=== PATIENT | female | born 1970 | race Caucasian/White ===

== ENCOUNTER → 2016-12-02 | Outpatient (CLI) | payer OTHER ==
[~2016-12-02] MED LIST: INCRUSE ELLIPTA INH; LORA10TA2 PO; PERC5TAB6 PO; REST15CA PO; SERT-138 PO; SIMV40TA2 PO; dulera INH; ventolin inhaler INH
--- NOTE | 2016-12-02 14:29 | REP ---
Clinical: COPD acute exacerbation . Comparison: 11/27/2015 . Technique: PA and lateral. Findings: The mediastinum and cardiac silhouette are stable. The lung pollock demonstrate chronic stable changes without acute consolidation, effusion, or pneumothorax. The skeletal structures are intact and normal. Impression: No acute cardiopulmonary process. If the patient remains symptomatic consider chest CT for further investigation.
== END ==
LOC: M CLY 14:00
PROVIDERS: ATTEND Physician Assistant
DX: J44.1 Chronic obstructive pulmonary disease with (acute) exacerbation (principal)

== ENCOUNTER → 2016-12-06 | Outpatient (REF) | payer OTHER ==
[2016-12-06 17:55] LABS: ALBUMIN/GLOBULIN RATIO 1.25 (1.00-1.93); ALKALINE PHOSPHATASE 100 U/L (45-117); ALT/SGPT 28 U/L (12-78); AMYLASE 57 U/L (25-115); ANION GAP 8 MEQ/L (8-16); AST/SGOT 20 U/L (15-37); BILIRUBIN,TOTAL 0.2 MG/DL (0.2-1.0); BLOOD UREA NITROGEN 18 MG/DL (7-18); CARBON DIOXIDE LEVEL 26 MEQ/L (21-32); CHLORIDE LEVEL 107 MEQ/L (98-107); CHOLESTEROL LEVEL 206 MG/DL (<200); CREATININE FOR GFR 0.93 MG/DL (0.55-1.02); FREE T4 0.94 NG/DL (0.76-1.46); GLOMERULAR FILTRATION RATE > 60.0 (>58); GLUCOSE, FASTING 108 MG/DL (70-105); POTASSIUM SERUM 4.3 MEQ/L (3.5-5.1); SODIUM LEVEL 141 MEQ/L (136-145); TOTAL PROTEIN 7.2 GM/DL (6.4-8.2); TRIGLYCERIDES LEVEL 190 MG/DL (<150)
[2016-12-06 18:42] LABS: BASO # 0.1 K/mm3 (0.0-0.2); BASO % 0.9 % (0.0-1.0); EOS # 0.4 K/mm3 (0.0-0.50); EOS % 5.6 % (0.0-3.0); LARGE UNSTAINED CELL # 0.1 K/mm3 (0.0-0.4); LARGE UNSTAINED CELL % 1.2 % (0.0-4.0); LYMPH # 2.4 K/mm3 (1.5-4.5); LYMPH % 29.2 % (24.0-44.0); MEAN CORPUSCULAR HEMOGLOBIN 29.9 pg (27.0-33.0); MEAN CORPUSCULAR HGB CONC 33.3 g/dl (32.0-36.5); MEAN CORPUSCULAR VOLUME 89.8 fl (80.0-96.0); MONO # 0.4 K/mm3 (0.0-0.8); MONO % 4.4 % (0.0-5.0); NEUTROPHILS # 4.6 K/mm3 (1.8-7.7); NEUTROPHILS % 58.7 % (36.0-66.0); PLATELET COUNT, AUTOMATED 169 k/mm3 (150-450); RED CELL DISTRIBUTION WIDTH 13.8 % (11.5-14.5); WHITE BLOOD COUNT 7.8 K/mm3 (4.0-10.0)
== END ==
LOC: M SFHCCAPE 07:34
PROVIDERS: ATTEND Physician Assistant
DX: R10.11 Right upper quadrant pain (principal)

== ENCOUNTER → 2016-12-20 | Outpatient (CLI) | payer OTHER ==
--- NOTE | 2016-12-20 11:24 | REP ---
THORACIC SPINE, THREE VIEWS: HISTORY: Thoracic pain. There is no acute fracture or subluxation. The intervertebral discs are normal in height. Osteophytes are present in the lower thoracic spine. IMPRESSION: Degenerative change as described above.
--- NOTE | 2016-12-20 11:26 | REP ---
LUMBAR SPINE, FIVE VIEWS: HISTORY: Back pain. There is no acute fracture or subluxation. The L3-4 through L5-S1 intervertebral discs are decreased in height consistent with disc degeneration. The facet joints are normal in appearance. IMPRESSION: Degenerative change as described above.
== END ==
LOC: M CLY 09:23
PROVIDERS: ATTEND Physician Assistant
DX: M54.6 Pain in thoracic spine (principal)

== ENCOUNTER → 2017-01-12 | Outpatient (REF) | payer OTHER ==
[2017-01-12 18:48] LABS: FREE T4 0.97 NG/DL (0.76-1.46)
== END ==
LOC: M SFHCCAPE 09:57
PROVIDERS: ATTEND Physician Assistant
DX: R94.6 Abnormal results of thyroid function studies (principal)

== ENCOUNTER 2017-03-22 16:42 | Emergency (ER) | payer OTHER ==
[~2017-03-22] VITALS: Ht 152.4 cm; Wt 70.4 kg
[~2017-03-22 16:42] MED LIST changes: +PERC5TAB12 PO; -PERC5TAB6 PO
[2017-03-22] MEDS ORDERED: MORPHINE 4 MG/ML 1ML SYRINGE IV PRN (17:45)
[2017-03-22] MEDS ORDERED: ONDANSETRON 4MG/2ML VIAL (J2405) IV ONE (17:45)
[2017-03-22] MEDS ORDERED: NS 1,000 ML IV ONE (17:45)
[2017-03-22 18:48] LABS: BASO % 0.7 % (0.0-1.0); EOS # 0.3 K/mm3 (0.0-0.50); EOS % 4.3 % (0.0-3.0); LARGE UNSTAINED CELL # 0.1 K/mm3 (0.0-0.4); LARGE UNSTAINED CELL % 1.3 % (0.0-4.0); LYMPH # 1.3 K/mm3 (1.5-4.5); LYMPH % 19.4 % (24.0-44.0); MEAN CORPUSCULAR HEMOGLOBIN 30.3 pg (27.0-33.0); MEAN CORPUSCULAR HGB CONC 34.9 g/dl (32.0-36.5); MEAN CORPUSCULAR VOLUME 86.8 fl (80.0-96.0); MONO # 0.3 K/mm3 (0.0-0.8); MONO % 5.5 % (0.0-5.0); NEUTROPHILS # 4.2 K/mm3 (1.8-7.7); NEUTROPHILS % 68.9 % (36.0-66.0); PLATELET COUNT, AUTOMATED 155 k/mm3 (150-450); RED CELL DISTRIBUTION WIDTH 14.1 % (11.5-14.5); WHITE BLOOD COUNT 6.2 K/mm3 (4.0-10.0)
[2017-03-22 19:06] LABS: ALBUMIN 3.8 GM/DL (3.2-5.2); ALBUMIN/GLOBULIN RATIO 1.03 (1.00-1.93); ALKALINE PHOSPHATASE 98 U/L (45-117); ALT/SGPT 34 U/L (12-78); ANION GAP 8 MEQ/L (8-16); AST/SGOT 26 U/L (15-37); BILIRUBIN,DIRECT 0.1 MG/DL (0.0-0.2); BILIRUBIN,TOTAL 0.4 MG/DL (0.2-1.0); BLOOD UREA NITROGEN 14 MG/DL (7-18); CALCIUM LEVEL 9.1 MG/DL (8.5-10.1); CARBON DIOXIDE LEVEL 25 MEQ/L (21-32); CHLORIDE LEVEL 106 MEQ/L (98-107); GLOMERULAR FILTRATION RATE > 60.0 (>58); GLUCOSE, FASTING 99 MG/DL (70-105); POTASSIUM SERUM 4.1 MEQ/L (3.5-5.1); SODIUM LEVEL 139 MEQ/L (136-145); TOTAL PROTEIN 7.5 GM/DL (6.4-8.2)
[2017-03-22] MEDS ORDERED: MACR100C43 PO (19:55)
[2017-03-22] MEDS ORDERED: PYRI1TAB5 PO (19:57)
[2017-03-22] MEDS ORDERED: NITROFURANTOIN (MACROBID) 100 MG CAP PO ONE (20:00)
[2017-03-22 20:13] VITALS: BP 105/65
--- NOTE | 2017-03-23 10:21 | REPUSA ---
CLINICAL HISTORY: Pain. TECHNIQUE: Realtime sonographic images were obtained in multiple projections. COMMENTS: The liver is demonstrates increased echogenicity compatible with fatty infiltration. No discrete hepatic mass is seen. There is no intra or extrahepatic biliary ductal dilatation. CBD measures 3 mm. The gallbladder is physiologically distended without evidence of calculi. The gallbladder wall is not thickened and ther e is no pericholecystic fluid. There is no abdominal ascites. The right kidney measures 9.7 cm, free of hydronephrosis, calculi, cysts or masses. IMPRESSION: Fatty liver. No acute pathology. Thank you for your kind referral of this patient.
== END 2017-03-22 20:26 | disposition home or self-care (01) ==
LOC: M ED 16:42
DX: N39.0 Urinary tract infection, site not specified (principal); J45.909 Unspecified asthma, uncomplicated; J44.9 Chronic obstructive pulmonary disease, unspecified; F41.9 Anxiety disorder, unspecified; F32.9 Major depressive disorder, single episode, unspecified; F17.200 Nicotine dependence, unspecified, uncomplicated; K76.0 Fatty (change of) liver, not elsewhere classified; Z79.899 Other long term (current) drug therapy
CPT/HCPCS: 76705; 80048; 80076; 81001; 83690; 85025; 96374; 96375; 99283; J2405

== ENCOUNTER → 2017-05-17 | Outpatient (REF) | payer OTHER ==
[~2017-05-17] MED LIST changes: +MACR100C43 PO; +PYRI1TAB5 PO
[2017-05-17 19:30] LABS: FOLATE 14.8 NG/ML; VITAMIN B12 LEVEL 339 PG/ML
[2017-05-17 19:40] LABS: ALBUMIN 3.8 GM/DL (3.2-5.2); ALBUMIN/GLOBULIN RATIO 1.12 (1.00-1.93); ALKALINE PHOSPHATASE 116 U/L (45-117); ALT/SGPT 36 U/L (12-78); ANION GAP 8 MEQ/L (8-16); AST/SGOT 14 U/L (15-37); BILIRUBIN,TOTAL 0.2 MG/DL (0.2-1.0); BLOOD UREA NITROGEN 19 MG/DL (7-18); CALCIUM LEVEL 9.1 MG/DL (8.5-10.1); CARBON DIOXIDE LEVEL 27 MEQ/L (21-32); CHLORIDE LEVEL 109 MEQ/L (98-107); CREATININE FOR GFR 0.84 MG/DL (0.55-1.02); FREE T4 0.92 NG/DL (0.76-1.46); GLOMERULAR FILTRATION RATE > 60.0 (>58); GLUCOSE, FASTING 74 MG/DL (70-105); POTASSIUM SERUM 4.1 MEQ/L (3.5-5.1); SODIUM LEVEL 144 MEQ/L (136-145); TOTAL PROTEIN 7.2 GM/DL (6.4-8.2)
[2017-05-17 20:14] LABS: BASO % 0.5 % (0.0-1.0); EOS # 0.4 K/mm3 (0.0-0.50); EOS % 4.4 % (0.0-3.0); LARGE UNSTAINED CELL # 0.1 K/mm3 (0.0-0.4); LARGE UNSTAINED CELL % 1.4 % (0.0-4.0); LYMPH # 1.8 K/mm3 (1.5-4.5); LYMPH % 20.8 % (24.0-44.0); MEAN CORPUSCULAR HEMOGLOBIN 30.5 pg (27.0-33.0); MEAN CORPUSCULAR HGB CONC 34.5 g/dl (32.0-36.5); MEAN CORPUSCULAR VOLUME 88.5 fl (80.0-96.0); MONO # 0.5 K/mm3 (0.0-0.8); MONO % 5.6 % (0.0-5.0); NEUTROPHILS # 5.7 K/mm3 (1.8-7.7); NEUTROPHILS % 67.4 % (36.0-66.0); PLATELET COUNT, AUTOMATED 186 k/mm3 (150-450); RED CELL DISTRIBUTION WIDTH 14.3 % (11.5-14.5); WHITE BLOOD COUNT 8.4 K/mm3 (4.0-10.0)
[2017-05-17 21:22] LABS: ERYTHROCYTE SEDIMENTATION RATE 40 mm/hr (0-20)
[2017-05-20 00:08] LABS: Lyme Disease IgG/IgM Antibodie <0.91 ISR (0.00-0.90); Lyme Disease IgM Ab Quantitati <0.80 index (0.00-0.79)
== END ==
LOC: M SFHCCAPE 10:46
PROVIDERS: ATTEND Physician Assistant
DX: M25.50 Pain in unspecified joint (principal); R94.6 Abnormal results of thyroid function studies

== ENCOUNTER → 2017-05-25 | Outpatient (CLI) | payer OTHER ==
--- NOTE | 2017-05-25 16:09 | REP ---
MRI lumbar spine without contrast: History: Lumbago with right-sided sciatica. Severe low back pain. Comparison radiographs December 20, 2016. Technique: Sagittal and axial T1 and T2-weighted scans are acquired in the usual fashion with and without fat saturation. Sequences include spin echo, turbo spin-echo, and STIR imaging sequences. MRI findings: Cortical and medullary bone signal intensity are normal. Vertebral body heights are preserved. Alignment is normal. Pedicles and posterior elements are intact. There is no evidence of spondylolysis or spondylolisthesis. Conus medullaris is normal in position and appearance at L1. No extra vertebral abnormality is observed. Disc spaces are maintained in height and signal intensity. No lumbar disc herniation is seen. No central canal stenosis or neural foraminal narrowing is seen. There is minimal facet hypertrophy at L4-5 and L5-S1. Impression: Minimal facet hypertrophy at L5-S1 and at L4-5. Otherwise negative MRI study lumbar spine. Signed by Mingo Hill MD 05/25/2017 06:02 P
== END ==
LOC: M RAD 11:10
PROVIDERS: ATTEND Physician Assistant
DX: M54.5 Low back pain (principal)

== ENCOUNTER → 2017-07-18 | Outpatient (REF) | payer OTHER | LOC: M SFHCCAPE 17:43 | PROVIDERS: ATTEND Physician Assistant | DX: R30.0 Dysuria (principal) ==

== ENCOUNTER 2017-08-12 10:59 | Emergency (ER) | payer OTHER ==
[~2017-08-12] VITALS: Ht 149.9 cm; Wt 74.9 kg
[2017-08-12] MEDS ORDERED: MORPHINE 2 MG/ML 1ML SYRINGE IV ONE (12:15)
[2017-08-12] MEDS ORDERED: KETOROLAC 30 MG/ML VIAL (J1885) IM ONE (12:15)
[2017-08-12] MEDS ORDERED: ACETAMINOPH W/CODEINE #3 TAB UD PO ONE (12:15)
[2017-08-12] MEDS ORDERED: KETOROLAC 30 MG/ML VIAL (J1885) IV ONE (12:15)
[2017-08-12 12:23] LABS: BASO % 0.4 % (0.0-1.0); EOS # 0.1 10^3/uL (0.0-0.50); EOS % 0.8 % (0.0-3.0); IMMATURE GRANULOCYTE % 0.3 % (0-0); LYMPH # 0.9 10^3/uL (1.5-4.5); LYMPH % 8.3 % (24.0-44.0); MEAN CORPUSCULAR HEMOGLOBIN 29.5 pg (27.0-33.0); MEAN CORPUSCULAR HGB CONC 33.1 g/dl (32.0-36.5); MONO # 0.7 10^3/uL (0.0-0.8); MONO % 6.6 % (0.0-5.0); NEUTROPHILS # 8.7 10^3/uL (1.8-7.7); NEUTROPHILS % 83.6 % (36.0-66.0); PLATELET COUNT, AUTOMATED 170 10^3/uL (150-450); RED CELL DISTRIBUTION WIDTH 13.6 % (11.5-14.5); WHITE BLOOD COUNT 10.4 10^3/uL (4.0-10.0)
[2017-08-12 12:38] LABS: ALBUMIN/GLOBULIN RATIO 0.8 (1.00-1.93); BILIRUBIN,TOTAL 0.5 MG/DL (0.2-1.0); CALCIUM LEVEL 9.4 MG/DL (8.5-10.1); CREATININE FOR GFR 1.24 MG/DL (0.55-1.02); GLOMERULAR FILTRATION RATE 48.9 (>58); POTASSIUM SERUM 3.7 MEQ/L (3.5-5.1)
[2017-08-12] MEDS ORDERED: ISOVUE-370 76% 100ML VIAL (Q9967) As Ordered ONE (12:47)
[2017-08-12] MEDS ORDERED: ONDANSETRON 4 MG ORAL DISINTEGRATING TAB (S0181) PO ONE (13:45)
[2017-08-12] MEDS ORDERED: TAMSULOSIN 0.4 MG CAP PO ONE (13:45)
[2017-08-12] MEDS ORDERED: BACTRIM 160MG/800MG DS TAB PO ONE (13:45)
[2017-08-12] MEDS ORDERED: NS 1,000 ML IV ONE (13:45)
[2017-08-12] MEDS ORDERED: FLOM5CAP PO ×2 (15:28→15:37)
[2017-08-12] MEDS ORDERED: BACT800T5 PO (15:28)
[2017-08-12 15:42] VITALS: BP 113/58
--- NOTE | 2017-08-13 06:43 | REP ---
REASON FOR EXAM: Flank pain. CONTRAST: 100 mL Isovue 370. Lung bases are clear. The liver, gallbladder, spleen, pancreas, adrenal glands, and right kidney are unremarkable. There is mild left sided hydronephrosis secondary to a round 9 mm size calcification in the ureteropelvic junction. The bowel loops and their mesenteries are within normal limits. There is no free fluid or free air. The abdominal aorta and para-aortic regions are within normal limits. There is no intra-abdominal mass or adenopathy. CT PELVIS: There is no mass or adenopathy. There is no free fluid or free air. The bowel loops and mesenteries are within normal limits. Bone window technique throughout the examination shows the osseous structures to be within normal limits. IMPRESSION: Proximal left ureterolith with resultant findings as described above. Signed by Be Saha DO 08/13/2017 08:55 A
== END 2017-08-12 15:43 | disposition home or self-care (01) ==
LOC: M ED 10:59
DX: N20.0 Calculus of kidney (principal); N39.0 Urinary tract infection, site not specified; R51 Headache; E78.00 Pure hypercholesterolemia, unspecified; J45.909 Unspecified asthma, uncomplicated; G47.30 Sleep apnea, unspecified; F41.9 Anxiety disorder, unspecified; F32.9 Major depressive disorder, single episode, unspecified; F17.200 Nicotine dependence, unspecified, uncomplicated; Z79.899 Other long term (current) drug therapy
CPT/HCPCS: 74177; 80053; 81001; 85025; 96361; 96372; 96374; 96375; 99284; J1885; Q9967

== ENCOUNTER → 2017-09-07 | Outpatient (REF) | payer OTHER | LOC: M SFHCCAPE 16:48 | DX: N39.0 Urinary tract infection, site not specified (principal) ==

== ENCOUNTER → 2017-09-14 | Outpatient (REF) | payer OTHER ==
[2017-09-14 17:14] LABS: HEMATOCRIT 40.2 % (36.0-47.0); HEMOGLOBIN 13.3 g/dl (12.0-16.0); MEAN CORPUSCULAR HEMOGLOBIN 29.3 pg (27.0-33.0); MEAN CORPUSCULAR HGB CONC 33.1 g/dl (32.0-36.5); MEAN CORPUSCULAR VOLUME 88.5 fl (80.0-96.0); PLATELET COUNT, AUTOMATED 196 10^3/uL (150-450); RED BLOOD COUNT 4.54 10^6/uL (4.00-5.40); RED CELL DISTRIBUTION WIDTH 14.2 % (11.5-14.5); WHITE BLOOD COUNT 7.9 10^3/uL (4.0-10.0)
[2017-09-14 17:25] LABS: INR 0.98; PROTHROMBIN TIME 13.1 SECONDS (12.4-14.5)
[2017-09-14 17:26] LABS: PARTIAL THROMBOPLASTIN TIME 30.7 SECONDS (26.8-37.9)
[2017-09-14 18:58] LABS: ANION GAP 9 MEQ/L (8-16); BLOOD UREA NITROGEN 17 MG/DL (7-18); CALCIUM LEVEL 9.1 MG/DL (8.5-10.1); CARBON DIOXIDE LEVEL 28 MEQ/L (21-32); CHLORIDE LEVEL 103 MEQ/L (98-107); CREATININE FOR GFR 0.88 MG/DL (0.55-1.02); GLOMERULAR FILTRATION RATE > 60.0 (>58); GLUCOSE, FASTING 225 MG/DL (70-105); SODIUM LEVEL 140 MEQ/L (136-145)
== END ==
LOC: M LABSMT 13:28
DX: N20.0 Calculus of kidney (principal); Z01.818 Encounter for other preprocedural examination; N39.0 Urinary tract infection, site not specified

== ENCOUNTER → 2017-10-04 | Outpatient (REF) | payer OTHER ==
[2017-10-04 18:01] LABS: APPEARANCE, URINE HAZY (CLEAR); BACTERIA, URINE AUTO 1+ (NEGATIVE); BILIRUBIN, URINE AUTO NEGATIVE (NEGATIVE); BLOOD, URINE BLOOD 3+ (NEGATIVE); COLOR, URINE YELLOW (YELLOW); GLUCOSE, URINE (UA) AUTO NEGATIVE (NEGATIVE); KETONE, URINE AUTO NEGATIVE (NEGATIVE); LEUKOCYTE ESTERASE, URINE AUTO 3+ (NEGATIVE); MUCUS, URINE SMALL (NEGATIVE); NITRITE, URINE AUTO NEGATIVE (NEGATIVE); PROTEIN, URINE AUTO 1+ mg/dL (NEGATIVE); RBC, URINE AUTO 16 /HPF (0-3); SPECIFIC GRAVITY URINE AUTO 1.018 (1.002-1.035); SQUAMOUS EPITHELIAL CELL UR AU 1 /HPF (0-6); UROBILINOGEN, URINE AUTO 0.2 mg/dL (0.0-2.0); WBC, URINE AUTO 36 /HPF (0-3)
== END ==
LOC: M LABSMT 07:21
DX: Z01.812 Encounter for preprocedural laboratory examination (principal); N13.2 Hydronephrosis with renal and ureteral calculous obstruction
CPT/HCPCS: 81001

== ENCOUNTER → 2017-10-04 | Outpatient (REF) | payer OTHER ==
[2017-10-06 14:13] LABS: C-PEPTIDE 4.2 ng/mL (1.1-4.4)
[2017-10-06 14:13] LABS: INSULIN LEVEL 14.5 uIU/mL (2.6-24.9)
== END ==
LOC: M LABSMT 16:44
DX: Z01.812 Encounter for preprocedural laboratory examination (principal); E66.9 Obesity, unspecified; N13.2 Hydronephrosis with renal and ureteral calculous obstruction
CPT/HCPCS: 83525

== ENCOUNTER 2017-10-09 08:47 | Day surgery (SDC) | payer OTHER ==
[2017-10-09] MEDS ORDERED: LIDOCAINE 1% MDV 20ML VIAL SQ (09:00)
[2017-10-09] MEDS: LR 1,000 ML IV (09:05)
[2017-10-09] MEDS ORDERED: fentaNYL 100 MCG/2 ML INJECTION (J3010) As Ordered (09:23)
[2017-10-09] MEDS ORDERED: MIDAZOLAM INJ 2 MG/2 ML VIAL (J2250) As Ordered (09:23)
[2017-10-09] MEDS ORDERED: LIDOCAINE PRES-FREE 2% 10ML AMP As Ordered (09:23)
[2017-10-09] MEDS ORDERED: PROPOFOL 200 MG/20 ML VIAL As Ordered (09:23)
[2017-10-09] MEDS: CONRAY-60 60% 50ML VIAL (Q9961) As Ordered (09:59)
[2017-10-09] MEDS ORDERED: dexameTHASONE 4 MG/ML 1ML VIAL (J1100) As Ordered (10:13)
[2017-10-09] MEDS ORDERED: PERCOCET 5MG/325MG TAB PO (11:30)
[2017-10-09] MEDS ORDERED: LEVALBUTEROL 1.25 MG/0.5 ML CONCENTRATE NEB INH (11:30)
[2017-10-09] MEDS: oxyBUTYnin 5 MG TAB PO (11:50)
[2017-10-09] MEDS: PERCOCET 5MG/325MG TAB PO ×2 (11:50→12:35)
[2017-10-09] MEDS: METOCLOPRAMIDE INJ 10MG/2ML VIAL (J2765) IV (13:20)
== END 2017-10-09 14:00 | disposition home or self-care (01) ==
LOC: M SDC 08:47
DX: N20.1 Calculus of ureter (principal); J45.909 Unspecified asthma, uncomplicated; J44.9 Chronic obstructive pulmonary disease, unspecified; E78.00 Pure hypercholesterolemia, unspecified; F41.9 Anxiety disorder, unspecified; M12.9 Arthropathy, unspecified; M54.5 Low back pain; G89.29 Other chronic pain; G47.33 Obstructive sleep apnea (adult) (pediatric); R06.83 Snoring; Z79.899 Other long term (current) drug therapy; Z87.440 Personal history of urinary (tract) infections; Z98.51 Tubal ligation status; Z90.710 Acquired absence of both cervix and uterus; Z72.0 Tobacco use
CPT/HCPCS: 52356

== ENCOUNTER → 2018-05-31 | Outpatient (CLI) | payer OTHER | LOC: M SMT 11:00 | DX: J44.9 Chronic obstructive pulmonary disease, unspecified (principal) | CPT/HCPCS: 71046 ==

== ENCOUNTER → 2018-11-02 | Outpatient (REF) | payer OTHER ==
[~2018-11-02] MED LIST changes: +BACT800T5 PO; +BREO1INH3 INH; +FLOM0.4C39 PO; +IPRA0.00 IN; +LORA-243 PO; -LORA10TA2 PO; +NICO21DI34 TD; +SUMA50TA2 PO; +VITA50005 PO; +ZOLO100T PO
[2018-11-02 16:34] LABS: APPEARANCE, URINE CLEAR (CLEAR); BACTERIA, URINE AUTO NEGATIVE (NEGATIVE); BILIRUBIN, URINE AUTO NEGATIVE (NEGATIVE); BLOOD, URINE BLOOD NEGATIVE (NEGATIVE); COLOR, URINE YELLOW (YELLOW); GLUCOSE, URINE (UA) AUTO NEGATIVE (NEGATIVE); KETONE, URINE AUTO NEGATIVE (NEGATIVE); LEUKOCYTE ESTERASE, URINE AUTO NEGATIVE (NEGATIVE); MUCUS, URINE SMALL (NEGATIVE); NITRITE, URINE AUTO NEGATIVE (NEGATIVE); PROTEIN, URINE AUTO NEGATIVE (NEGATIVE); RBC, URINE AUTO 1 /HPF (0-3); SPECIFIC GRAVITY URINE AUTO 1.021 (1.002-1.035); SQUAMOUS EPITHELIAL CELL UR AU 0 /HPF (0-6); UROBILINOGEN, URINE AUTO 0.2 mg/dL (0.0-2.0); WBC, URINE AUTO 1 /HPF (0-3)
== END ==
LOC: M LAB REF 15:51
PROVIDERS: ATTEND Physician Assistant
DX: R10.12 Left upper quadrant pain (principal)

== ENCOUNTER → 2018-11-03 | Outpatient (REF) | payer OTHER | LOC: M LAB REF 11:16 | PROVIDERS: ATTEND Physician Assistant | DX: M54.5 Low back pain (principal) ==

== ENCOUNTER → 2018-11-19 | Outpatient (CLI) | payer OTHER ==
[2018-11-19 10:00] LABS: BASO # 0.1 10^3/uL (0.0-0.2); BASO % 1.1 % (0.0-1.0); EOS # 0.5 10^3/uL (0.0-0.50); EOS % 5.6 % (0.0-3.0); HEMATOCRIT 43.4 % (36.0-47.0); HEMOGLOBIN 14.4 g/dl (12.0-15.5); LYMPH % 24.4 % (24.0-44.0); MEAN CORPUSCULAR HEMOGLOBIN 29.2 pg (27.0-33.0); MEAN CORPUSCULAR HGB CONC 33.2 g/dl (32.0-36.5); MONO # 0.5 10^3/uL (0.0-0.8); MONO % 6.2 % (0.0-5.0); NEUTROPHILS # 5.1 10^3/uL (1.8-7.7); NEUTROPHILS % 62.5 % (36.0-66.0); PLATELET COUNT, AUTOMATED 165 10^3/uL (150-450); RED BLOOD COUNT 4.93 10^6/uL (4.00-5.40); WHITE BLOOD COUNT 8.1 10^3/uL (4.0-10.0)
[2018-11-19 10:52] LABS: ALT/SGPT 36 U/L (12-78); BILIRUBIN,TOTAL 0.4 MG/DL (0.2-1.0); BLOOD UREA NITROGEN 14 MG/DL (7-18); CALCIUM LEVEL 8.6 MG/DL (8.5-10.1); CARBON DIOXIDE LEVEL 27 MEQ/L (21-32); CHLORIDE LEVEL 105 MEQ/L (98-107); CHOLESTEROL LEVEL 204 MG/DL (<200); CHOLESTEROL RISK RATIO 3.517 (<5); CREATININE FOR GFR 0.85 MG/DL (0.55-1.30); FREE T4 0.96 NG/DL (0.76-1.46); GLOMERULAR FILTRATION RATE > 60.0 (>51); GLUCOSE, FASTING 136 MG/DL (70-100); HDL CHOLESTEROL 58 MG/DL (>40); LDL CHOLESTEROL 118 MG/DL (<100); NON-HDL-C 146 MG/DL; POTASSIUM SERUM 4.3 MEQ/L (3.5-5.1); SODIUM LEVEL 139 MEQ/L (136-145); TOTAL PROTEIN 7.3 GM/DL (6.4-8.2); TRIGLYCERIDES LEVEL 142 MG/DL (<150)
== END ==
LOC: M WUC 09:02
PROVIDERS: ATTEND Physician Assistant
DX: J44.9 Chronic obstructive pulmonary disease, unspecified (principal); E78.2 Mixed hyperlipidemia

== ENCOUNTER → 2019-02-06 | Outpatient (REF) ==
--- NOTE | 2019-02-06 16:13 | REP ---
PARTIAL LUMBAR SPINE, THREE VIEWS: HISTORY: Degenerative disc disease. There is no acute fracture or subluxation. The L5-S1 intervertebral disc is decreased in height consistent with disc degeneration. Osteophytes are present on L5 and S1. IMPRESSION:Degenerative change as described above. Electronically Signed by Reed Barba MD 02/06/2019 04:18 P
== END ==
LOC: M SMT 14:06
PROVIDERS: ATTEND Internal Medicine
DX: M51.37 Other intervertebral disc degeneration, lumbosacral region (principal)

== ENCOUNTER → 2020-03-20 | Outpatient (CLI) | payer OTHER ==
[~2020-03-20] MED LIST changes: -SIMV40TA2 PO; +SIMV40TA20 PO
[2020-03-20 12:28] LABS: BASO # 0.1 10^3/uL (0.0-0.2); BASO % 0.8 % (0.0-1.0); EOS # 0.3 10^3/uL (0.0-0.5); EOS % 4.5 % (0.0-3.0); HEMATOCRIT 43.9 % (36.0-47.0); HEMOGLOBIN 14.3 g/dl (12.0-15.5); LYMPH # 2.3 10^3/uL (1.5-5.0); LYMPH % 30.1 % (24.0-44.0); MEAN CORPUSCULAR HEMOGLOBIN 29.5 pg (27.0-33.0); MEAN CORPUSCULAR HGB CONC 32.6 g/dl (32.0-36.5); MEAN CORPUSCULAR VOLUME 90.7 fl (80.0-96.0); MONO # 0.4 10^3/uL (0.0-0.8); MONO % 5.5 % (0.0-5.0); NEUTROPHILS # 4.4 10^3/uL (1.5-8.5); NEUTROPHILS % 58.4 % (36.0-66.0); PLATELET COUNT, AUTOMATED 154 10^3/uL (150-450); RED BLOOD COUNT 4.84 10^6/uL (4.00-5.40); WHITE BLOOD COUNT 7.6 10^3/uL (4.0-10.0)
[2020-03-20 13:04] LABS: ALBUMIN 3.9 GM/DL (3.2-5.2); ALT/SGPT 27 U/L (12-78); BILIRUBIN,TOTAL 0.3 MG/DL (0.2-1.0); BLOOD UREA NITROGEN 15 MG/DL (7-18); CALCIUM LEVEL 8.8 MG/DL (8.5-10.1); CARBON DIOXIDE LEVEL 28 MEQ/L (21-32); CHLORIDE LEVEL 107 MEQ/L (98-107); CHOLESTEROL LEVEL 213 MG/DL (<200); CHOLESTEROL RISK RATIO 4.346 (<5); CREATININE FOR GFR 0.82 MG/DL (0.55-1.30); FREE T4 0.98 NG/DL (0.76-1.46); GLOMERULAR FILTRATION RATE > 60.0 (>51); GLUCOSE, FASTING 109 MG/DL (70-100); HDL CHOLESTEROL 49 MG/DL (>40); LDL CHOLESTEROL 135 MG/DL (<100); NON-HDL-C 164 MG/DL; POTASSIUM SERUM 4.3 MEQ/L (3.5-5.1); SODIUM LEVEL 141 MEQ/L (136-145); TRIGLYCERIDES LEVEL 147 MG/DL (<150)
[2020-03-20 13:05] LABS: TOTAL 25(OH) VITAMIN D 81.2 NG/ML (30.0-100.0); VITAMIN B12 LEVEL 240 PG/ML
== END ==
LOC: M WUC 08:37
PROVIDERS: ATTEND Physician Assistant
DX: J44.9 Chronic obstructive pulmonary disease, unspecified (principal); F33.1 Major depressive disorder, recurrent, moderate; E78.2 Mixed hyperlipidemia; M79.662 Pain in left lower leg

== ENCOUNTER 2020-09-15 19:03 | Emergency (ER) | payer OTHER ==
[~2020-09-15] VITALS: Ht 149.9 cm; Wt 77.0 kg
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
--- OUTSIDE RECORDS SUMMARY | 2020-09-15 19:13 | CCD ---
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 [employer] Name Role Phone Anastasia, Fabricio PA Unavailable Unavailable Anastasia, Fabricio PA Unavailable Unavailable Anatsasia, Fabricio PA Unavailable Unavailable Anastasia, Fabricio PA Unavailable Unavailable Anastasia, Fabricio PA Unavailable Unavailable Anastasia, Fabricio PA Unavailable Unavailable Anastasia, Fabricio PA Unavailable Unavailable Anastasia, Fabricio PA Unavailable Unavailable Anastasia, Fabricio PA Unavailable Unavailable Anastasia, Fabricio PA Unavailable Unavailable Anastasia, Fabricio PA Unavailable Unavailable Anastasia, Fabricio PA Unavailable Unavailable Anastasia, Fabricio PA Unavailable Unavailable Anastasia, Fabricio PA Unavailable Unavailable Anastasia, Fabricio PA Unavailable Unavailable Anastasia, Fabricio PA Unavailable Unavailable Anastasia, Fabricio PA Unavailable Unavailable Anastasia, Fabricio PA Unavailable Unavailable Anastasia, Fabricio PA Unavailable Unavailable Anastasia, Fabricio PA Unavailable Unavailable Anastasia, Fabricio PA Unavailable Unavailable Anastasia, Fabricio PA Unavailable Unavailable Anastasia, Fabricio PA Unavailable Unavailable Anastasia, Fabricio PA Unavailable Unavailable Anastasia, Fabricio PA Unavailable Unavailable Anastasia, Fabricio PA Unavailable Unavailable Anastasia, Fabricio PA Unavailable Unavailable Anastasia, Fabricio PA Unavailable Unavailable Anastasia, Fabricio PA Unavailable Unavailable Anastasia, Fabricio PA Unavailable Unavailable Anastasia, Fabricio PA Unavailable Unavailable Anastasia, Fabricio PA Unavailable Unavailable Anastasia, Fabricio PA Unavailable Unavailable Anastasia, Fabricio PA Unavailable Unavailable Anastasia, Fabricio PA Unavailable Unavailable Anastasia, Fabricio PA Unavailable Unavailable Anastasia, Fabricio PA Unavailable Unavailable Anastasia, Fabricio PA Unavailable Unavailable Anastasia, Fabricio PA Unavailable Unavailable Anastasia, Fabricio PA Unavailable Unavailable Anastasia, Fabricio PA Unavailable Unavailable Anastasia, Fabricio PA Unavailable Unavailable Anastasia, Fabricio PA Unavailable Unavailable Anastasia, Fabricio PA Unavailable Unavailable Anastasia, Fabricio PA Unavailable Unavailable Anastasia, Fabricio PA Unavailable Unavailable Anastasia, Fabricio PA Unavailable Unavailable Anastasia, Fabricio PA Unavailable Unavailable LETTIERE, A EDU PA Unavailable Unavailable LETTIERE, A EDU PA Unavailable Unavailable LETTIERE, A EDU PA Unavailable Unavailable LETTIERE, A EDU PA Unavailable Unavailable LETTIERE, A EDU PA Unavailable Unavailable LETTIERE, A EDU PA Unavailable Unavailable LETTIERE, A EDU PA Unavailable Unavailable LETTIERE, A EDU PA Unavailable Unavailable LETTIERE, A EDU PA Unavailable Unavailable LETTIERE, A EDU PA Unavailable Unavailable LETTIERE, A EDU PA Unavailable Unavailable LETTIERE, A DEU PA Unavailable Unavailable LETTIERE, A EDU PA Unavailable Unavailable LETTIERE, A EDU PA Unavailable Unavailable LETTIERE, A EDU PA Unavailable Unavailable LETTIERE, A EDU PA Unavailable Unavailable LETTIERE, A EDU PA Unavailable Unavailable LETTIERE, A EDU PA Unavailable Unavailable LETTIERE, A EDU PA Unavailable Unavailable LETTIERE, A EDU PA Unavailable Unavailable LETTIERE, A EDU PA Unavailable Unavailable LETTIERE, A EDU PA Unavailable Unavailable LETTIERE, A EDU PA Unavailable Unavailable LETTIERE, A EDU PA Unavailable Unavailable LETTIERE, A EDU PA Unavailable Unavailable LETTIERE, A EDU PA Unavailable Unavailable LETTIERE, A EDU PA Unavailable Unavailable LETTIERE, A EDU PA Unavailable Unavailable LETTIERE, A EDU PA Unavailable Unavailable Re-disclosure Warning The records that you are about to access may contain information from federally-assisted alcohol or drug abuse programs. If such information is present, then the following federally mandated warning applies: This information has been disclosed to you from records protected by federal confidentiality rules (42 CFR part 2). The federal rules prohibit you from making any further disclosure of this information unless further disclosure is expressly permitted by the written consent of the person to whom it pertains or as otherwise permitted by 42 CFR part 2. A general authorization for the release of medical or other information is NOT sufficient for this purpose. The Federal rules restrict any use of the information to criminally investigate or prosecute any alcohol or drug abuse patient.The records that you are about to access may contain highly sensitive health information, the redisclosure of which is protected by Article 27-F of the [facility] Public Health law. If you continue you may have access to information: Regarding HIV / AIDS; Provided by facilities licensed or operated by the [facility] Office of Mental Health; or Provided by the [facility] Office for People With Developmental Disabilities. If such information is present, then the following [facility] mandated warning applies: This information has been disclosed to you from confidential records which are protected by state law. State law prohibits you from making any further disclosure of this information without the specific written consent of the person to whom it pertains, or as otherwise permitted by law. Any unauthorized further disclosure in violation of state law may result in a fine or assisted sentence or both. A general authorization for the release of medical or other information is NOT sufficient authorization for further disc losure. Family History Family Member Name Family Member Gender Family Member Status Date o f Status Description Data Source(s) Unknown Male Problem [facility] ([facility]) Unknown Unknown Problem [facility] ([facility] Unknown [facility] Problem [facility] ([facility] ) Unknown Unknown Problem [facility] ([facility] ) Unknown Unknown Problem [facility] ([facility] ) Unknown Unknown Problem [facility] ([facility] ) Unknown Unknown Problem [facility] ([facility] ) Encounters Encounter Providers Location Date Indications Data Source(s ) Outpatient Attender: Fabricio [facility] 01/20/2020 01:00:00 PM EDT [facility] ([facility]) Outpatient Attender: Fabricio [facility] 09/16/2019 09:20:00 AM EST [facility] ([facility]) Outpatient Attender: EDU mattson 07/26/2019 07:05:00 AM EST [facility] ([facility] Immunizations Vaccine Date Status Description Data Source(s) INFLUENZA VIRUS VACCINE QUADRIVALENT (6 MOS AN D UP) 05/28/2020 12:00:00 AM EDT completed [facility] Medications Medication Brand Name Start Date Product Form Dose Route Admi nistrative Instructions Pharmacy Instructions Status Indications Reaction Description Data Source(s) 15 mg 09/01/2020 12:00:00 AM EST capsule 45 TAKE ONE TO TWO CAPSULES BY MOUTH EVERY EVENING NEEDED FOR INSOMNIA MAXIMUM DAILY DOSE = 2 CAPSULES TAKE ONE TO TWO CAPSULES BY MOUTH EVERY EVENING NEEDED FOR INSOMNIA MAXIMUM DAILY DOSE = 2 CAPSULES SOLD: 09/03/2020 [facility] 10 mg 08/12/2020 12:00:00 AM EST tablet 30 TAKE ONE TABLET BY MOUTH EVERY DAY TAKE ONE TABLET BY MOUTH EVERY DAY SOLD: 09/13/2020 [facility] 10 mg 08/12/2020 12:00:00 AM EST tablet 30 TAKE ONE TABLET BY MOUTH EVERY DAY TAKE ONE TABLET BY MOUTH EVERY DAY SOLD: 08/12/2020 [facility] 90 mcg/actuation 08/12/2020 12:00:00 AM EST HFA aerosol inha ler 18 INHALE TWO PUFFS BY MOUTH EVERY 4 HOURS NEEDED FOR SHORTNESS OF BREATH OR WHEEZING INHALE TWO PUFFS BY MOUTH EVERY 4 HOURS NEEDED FOR SHORTNESS OF BREATH OR WHEEZING SOLD: 08/12/2020 [facility] 2.5 mg /3 mL (0.083 %) 08/03/2020 12:00:00 AM EST solu tion for nebulization 75 1 VIAL VIA NEBULIZER EVERY 4 HOURS NE EDED 1 VIAL VIA NEBULIZER EVERY 4 HOURS NEEDED SOLD: 08/04/2020 [facility] 62.5 mcg/actuation 08/03/2020 12:00:00 AM EST blister with d evice 30 INHALE ONE PUFF BY MOUTH EVERY DAY INHALE ONE PUFF BY MOUTH EVERY DAY SOLD: 08/04/2020 [facility] 90 mcg/actuation 07/28/2020 12:00:00 AM EST HFA aerosol inha ler 18 INHALE TWO PUFFS BY MOUTH EVERY 4 HOURS NEEDED FOR SHORTNESS OF BREATH OR WHEEZING INHALE TWO PUFFS BY MOUTH EVERY 4 HOURS NEEDED FOR SHORTNESS OF BREATH OR WHEEZING SOLD: 09/03/2020 [facility] 90 mcg/actuation 07/28/2020 12:00:00 AM EST HFA aerosol inha ler 18 INHALE TWO PUFFS BY MOUTH EVERY 4 HOURS NEEDED FOR SHORTNESS OF BREATH OR WHEEZING INHALE TWO PUFFS BY MOUTH EVERY 4 HOURS NEEDED FOR SHORTNESS OF BREATH OR WHEEZING SOLD: 07/28/2020 [facility] 15 mg 07/23/2020 12:00:00 AM EST capsule 45 TAKE ONE TO TWO CAPSULES BY MOUTH IN THE EVENING NEEDED FOR INSOMNIA MAXIMUM DAILY DOSE = 2 TAKE ONE TO TWO CAPSULES BY MOUTH IN THE EVENING NEEDED FOR INSOMNIA MAXIMUM DAILY DOSE = 2 SOLD: 07/28/2020 [facility] 100 mg 07/15/2020 12:00:00 AM EST tablet 9 TAKE 1 TABLET BY MOUTH AT ONSET OF HEADACHE, REPEAT IN 2 HOURS IF NOT RESOLVED TAKE 1 TABLET BY MOUTH AT ONSET OF HEADACHE, REPEAT IN 2 HOURS IF NOT RESOLVED SOLD: 07/16/2020 [facility] 100 mg 07/15/2020 12:00:00 AM EST tablet 9 TAKE 1 TABLET BY MOUTH AT ONSET OF HEADACHE, REPEAT IN 2 HOURS IF NOT RESOLVED TAKE 1 TABLET BY MOUTH AT ONSET OF HEADACHE, REPEAT IN 2 HOURS IF NOT RESOLVED SOLD: 08/12/2020 [facility] 100 mg 07/15/2020 12:00:00 AM EST tablet 9 TAKE 1 TABLET BY MOUTH AT ONSET OF HEADACHE, REPEAT IN 2 HOURS IF NOT RESOLVED TAKE 1 TABLET BY MOUTH AT ONSET OF HEADACHE, REPEAT IN 2 HOURS IF NOT RESOLVED SOLD: 09/13/2020 [facility] 1 % 06/29/2020 12:00:00 AM EDT cream 400 APPLY TO THE RIGHT SIDE OF THE NECK TWO TIMES A DAY NEEDED UNTIL HEALED APPLY TO THE RIGHT SIDE OF THE NECK TWO TIMES A DAY NEEDED UNTIL HEALED SOLD: 06/29/2020 [facility] silver sulfadiazine 10 MG/ML Topical Cream [Silvadene] Yana rodriguez 06/29/2020 12:00:00 AM EDT TOPICAL active [facility] ([facility]) Sulfamethoxazole 800 MG / Trimethoprim 160 MG Oral Tab let 800-160 mg SULFAMETHOXAZOLE/TRIMETHOPRIM 06/18/2020 12:00:00 AM EDT tablet 14 TAKE ONE TABLET BY MOUTH TWICE A DAY TAKE ONE TABLET BY MOUTH TWICE A DAY SOLD: 06/20/2020 [facility] 90 mcg/actuation 06/11/2020 12:00:00 AM EDT HFA aerosol inha ler 18 INHALE TWO PUFFS BY MOUTH EVERY 4 HOURS NEEDED FOR SHORTNESS OF BREATH OR WHEEZING INHALE TWO PUFFS BY MOUTH EVERY 4 HOURS NEEDED FOR SHORTNESS OF BREATH OR WHEEZING SOLD: 06/14/2020 [facility] 90 mcg/actuation 06/11/2020 12:00:00 AM EDT HFA aerosol inha ler 18 INHALE TWO PUFFS BY MOUTH EVERY 4 HOURS NEEDED FOR SHORTNESS OF BREATH OR WHEEZING INHALE TWO PUFFS BY MOUTH EVERY 4 HOURS NEEDED FOR SHORTNESS OF BREATH OR WHEEZING SOLD: 07/16/2020 [facility] 15 mg 06/10/2020 12:00:00 AM EDT capsule 45 TAKE ONE TO TWO CAPSULES BY MOUTH EVERY EVENING NEEDED FOR INSOMNIA MAXIMUM DAILY DOSE = 2 CAPSULES TAKE ONE TO TWO CAPSULES BY MOUTH EVERY EVENING NEEDED FOR INSOMNIA MAXIMUM DAILY DOSE = 2 CAPSULES SOLD: 06/10/2020 [facility] 1,250 mcg (50,000 unit) 05/21/2020 12:00:00 AM EDT capsule 12 TAKE ONE CAPSULE BY MOUTH ONCE WEEKLY FOR 12 WEEKS TAKE ONE CAPSULE BY MOUTH ONCE WEEKLY FOR 12 WEEKS SOLD: 08/04/2020 [facility] 1,250 mcg (50,000 unit) 05/21/2020 12:00:00 AM EDT capsule 12 TAKE ONE CAPSULE BY MOUTH ONCE WEEKLY FOR 12 WEEKS TAKE ONE CAPSULE BY MOUTH ONCE WEEKLY FOR 12 WEEKS SOLD: 05/25/2020 [facility] 15 mg 04/29/2020 12:00:00 AM EDT capsule 45 TAKE 1 TO 2 CAPSULES BY MOUTH EVERY EVENING NEEDED FOR INSOMNIA MAXIMUM DAILY DOSE = 2 TAKE 1 TO 2 CAPSULES BY MOUTH EVERY EVENING NEEDED FOR INSOMNIA MAXIMUM DAILY DOSE = 2 SOLD: 04/29/2020 [facility] 40 mg 04/20/2020 12:00:00 AM EDT tablet 30 TAKE ONE TABLET BY MOUTH EVERY DAY TAKE ONE TABLET BY MOUTH EVERY DAY SOLD: 04/23/2020 [facility] 40 mg 04/20/2020 12:00:00 AM EDT tablet 30 TAKE ONE TABLET BY MOUTH EVERY DAY TAKE ONE TABLET BY MOUTH EVERY DAY SOLD: 05/25/2020 [facility] 40 mg 04/20/2020 12:00:00 AM EDT tablet 30 TAKE ONE TABLET BY MOUTH EVERY DAY TAKE ONE TABLET BY MOUTH EVERY DAY SOLD: 09/03/2020 [facility] 40 mg 04/20/2020 12:00:00 AM EDT tablet 30 TAKE ONE TABLET BY MOUTH EVERY DAY TAKE ONE TABLET BY MOUTH EVERY DAY SOLD: 07/05/2020 [facility] 40 mg 04/20/2020 12:00:00 AM EDT tablet 30 TAKE ONE TABLET BY MOUTH EVERY DAY TAKE ONE TABLET BY MOUTH EVERY DAY SOLD: 08/04/2020 [facility] 90 mcg/actuation 04/20/2020 12:00:00 AM EDT HFA aerosol inha ler 18 INHALE TWO PUFFS BY MOUTH EVERY 4 HOURS FOR SHORTNESS OF BREATH OR WHEEZING INHALE TWO PUFFS BY MOUTH EVERY 4 HOURS FOR SHORTNESS OF BREATH OR WHEEZING SOLD: 04/23/2020 [facility] 90 mcg/actuation 04/20/2020 12:00:00 AM EDT HFA aerosol inha ler 18 INHALE TWO PUFFS BY MOUTH EVERY 4 HOURS FOR SHORTNESS OF BREATH OR WHEEZING INHALE TWO PUFFS BY MOUTH EVERY 4 HOURS FOR SHORTNESS OF BREATH OR WHEEZING SOLD: 05/25/2020 [facility] 15 mg 03/13/2020 12:00:00 AM EDT capsule 45 TAKE 1-2 CAPSULES BY MOUTH EVERY EVENING NEEDED FOR INSOMNIA MAXIMUM DAILY DOSE = 2 CAPSULES TAKE 1-2 CAPSULES BY MOUTH EVERY EVENING NEEDED FOR INSOMNIA MAXIMUM DAILY DOSE = 2 CAPSULES SOLD: 03/15/2020 [facility] 100 mg 03/09/2020 12:00:00 AM EDT tablet 30 TAKE ONE TABLET BY MOUTH EVERY DAY TAKE ONE TABLET BY MOUTH EVERY DAY SOLD: 03/13/2020 [facility] 100 mg 03/09/2020 12:00:00 AM EDT tablet 30 TAKE ONE TABLET BY MOUTH EVERY DAY TAKE ONE TABLET BY MOUTH EVERY DAY SOLD: 04/23/2020 [facility] 100 mg 03/09/2020 12:00:00 AM EDT tablet 30 TAKE ONE TABLET BY MOUTH EVERY DAY TAKE ONE TABLET BY MOUTH EVERY DAY SOLD: 09/13/2020 [facility] 100 mg 03/09/2020 12:00:00 AM EDT tablet 30 TAKE ONE TABLET BY MOUTH EVERY DAY TAKE ONE TABLET BY MOUTH EVERY DAY SOLD: 08/12/2020 [facility] 100 mg 03/09/2020 12:00:00 AM EDT tablet 30 TAKE ONE TABLET BY MOUTH EVERY DAY TAKE ONE TABLET BY MOUTH EVERY DAY SOLD: 07/16/2020 [facility] 100 mg 03/09/2020 12:00:00 AM EDT tablet 30 TAKE ONE TABLET BY MOUTH EVERY DAY TAKE ONE TABLET BY MOUTH EVERY DAY SOLD: 05/25/2020 [facility] 1,250 mcg (50,000 unit) 02/26/2020 12:00:00 AM EDT capsule 12 TAKE ONE CAPSULE BY MOUTH ONCE WEEKLY FOR 12 WEEKS TAKE ONE CAPSULE BY MOUTH ONCE WEEKLY FOR 12 WEEKS SOLD: 02/27/2020 [facility] 24 HR Nicotine 0.875 MG/HR Transdermal Patch Nicotine Step 1 02/25/2020 12:00:00 AM EDT completed [facility] ([facility]) 21 mg/24 hr 02/25/2020 12:00:00 AM EDT patch 24 hour 28 APPLY 1 PATCH TO UPPER ARMS DAILY APPLY 1 PATCH TO UPPER ARMS DAILY SOLD: 02/27/2020 [facility] 90 mcg/actuation 02/11/2020 12:00:00 AM EDT HFA aerosol inha ler 18 INHALE 2 PUFFS BY MOUTH EVERY 4 HOURS NEEDED FOR FOR SHORTNESS OF BREATH OR WHEEZING INHALE 2 PUFFS BY MOUTH EVERY 4 HOURS NEEDED FOR FOR SHORTNESS OF BREATH OR WHEEZING SOLD: 02/13/2020 [facility] 90 mcg/actuation 02/11/2020 12:00:00 AM EDT HFA aerosol inha ler 18 INHALE 2 PUFFS BY MOUTH EVERY 4 HOURS NEEDED FOR FOR SHORTNESS OF BREATH OR WHEEZING INHALE 2 PUFFS BY MOUTH EVERY 4 HOURS NEEDED FOR FOR SHORTNESS OF BREATH OR WHEEZING SOLD: 03/13/2020 [facility] 113-14 mcg/actuation 01/22/2020 12:00:00 AM EDT aerosol powdr breath activated 1 INHALE ONE PUFF BY MOUTH TWICE A DAY INHA LE ONE PUFF BY MOUTH TWICE A DAY SOLD: 09/03/2020 [facility] 113-14 mcg/actuation 01/22/2020 12:00:00 AM EDT aerosol powdr breath activated 1 INHALE ONE PUFF BY MOUTH TWICE A DAY INHA LE ONE PUFF BY MOUTH TWICE A DAY SOLD: 05/25/2020 [facility] [employer] Respiclick 113/14 [employer]lick 113/14 01/22/2020 12:00: 00 AM EDT ORAL active [facility] ([facility]) 113-14 mcg/actuation 01/22/2020 12:00:00 AM EDT aerosol powdr breath activated 1 INHALE ONE PUFF BY MOUTH TWICE A DAY INHA LE ONE PUFF BY MOUTH TWICE A DAY SOLD: 07/16/2020 [facility] 113-14 mcg/actuation 01/22/2020 12:00:00 AM EDT aerosol powdr breath activated 1 INHALE ONE PUFF BY MOUTH TWICE A DAY INHA LE ONE PUFF BY MOUTH TWICE A DAY SOLD: 02/27/2020 [facility] 113-14 mcg/actuation 01/22/2020 12:00:00 AM EDT aerosol powdr breath activated 1 INHALE ONE PUFF BY MOUTH TWICE A DAY INHA LE ONE PUFF BY MOUTH TWICE A DAY SOLD: 01/24/2020 [facility] 90 mcg/actuation 01/20/2020 12:00:00 AM EDT HFA aerosol inha ler 18 INHALE TWO PUFFS BY MOUTH EVERY 4 HOURS NEEDED FOR FOR SHORTNESS OF BREATH WHEEZING INHALE TWO PUFFS BY MOUTH EVERY 4 HOURS NEEDED FOR FOR SHORTNESS OF BREATH WHEEZING SOLD: 01/24/2020 [facility] 100 mg 01/20/2020 12:00:00 AM EDT tablet 9 TAKE ONE TABLET BY MOUTH AT THE ONSET OF A HEADACHE- REPEAT IN 2 HOURS IF NOT RESOLVED. HAS 15 HEADACHES A MONTH TAKE ONE TABLET BY MOUTH AT THE ONSET OF A HEADACHE- REPEAT IN 2 HOURS IF NOT RESOLVED. HAS 15 HEADACHES A MONTH SOLD: 06/20/2020 [facility] 100 mg 01/20/2020 12:00:00 AM EDT tablet 9 TAKE ONE TABLET BY MOUTH AT THE ONSET OF A HEADACHE- REPEAT IN 2 HOURS IF NOT RESOLVED. HAS 15 HEADACHES A MONTH TAKE ONE TABLET BY MOUTH AT THE ONSET OF A HEADACHE- REPEAT IN 2 HOURS IF NOT RESOLVED. HAS 15 HEADACHES A MONTH SOLD: 05/25/2020 [facility] 62.5 mcg/actuation 01/20/2020 12:00:00 AM EDT blister with d evice 30 INHALE ONE PUFF BY MOUTH EVERY DAY INHALE ONE PUFF BY MOUTH EVERY DAY SOLD: 01/24/2020 [facility] 90 mcg/actuation 01/20/2020 12:00:00 AM EDT HFA aerosol inha ler 18 INHALE TWO PUFFS BY MOUTH EVERY 4 HOURS NEEDED FOR FOR SHORTNESS OF BREATH WHEEZING INHALE TWO PUFFS BY MOUTH EVERY 4 HOURS NEEDED FOR FOR SHORTNESS OF BREATH WHEEZING SOLD: 03/13/2020 [facility] 15 mg 01/20/2020 12:00:00 AM EDT capsule 45 TAKE ONE TO TWO CAPSULES BY MOUTH IN THE EVENING NEEDED FOR INSOMNIA MAXIMUM DAILY DOSE = 2 TAKE ONE TO TWO CAPSULES BY MOUTH IN THE EVENING NEEDED FOR INSOMNIA MAXIMUM DAILY DOSE = 2 SOLD: 01/24/2020 [facility] 100 mg 01/20/2020 12:00:00 AM EDT tablet 9 TAKE ONE TABLET BY MOUTH AT THE ONSET OF A HEADACHE- REPEAT IN 2 HOURS IF NOT RESOLVED. HAS 15 HEADACHES A MONTH TAKE ONE TABLET BY MOUTH AT THE ONSET OF A HEADACHE- REPEAT IN 2 HOURS IF NOT RESOLVED. HAS 15 HEADACHES A MONTH SOLD: 04/23/2020 [facility] 100 mg 01/20/2020 12:00:00 AM EDT tablet 9 TAKE ONE TABLET BY MOUTH AT THE ONSET OF A HEADACHE- REPEAT IN 2 HOURS IF NOT RESOLVED. HAS 15 HEADACHES A MONTH TAKE ONE TABLET BY MOUTH AT THE ONSET OF A HEADACHE- REPEAT IN 2 HOURS IF NOT RESOLVED. HAS 15 HEADACHES A MONTH SOLD: 01/24/2020 [facility] 100 mg 01/20/2020 12:00:00 AM EDT tablet 9 TAKE ONE TABLET BY MOUTH AT THE ONSET OF A HEADACHE- REPEAT IN 2 HOURS IF NOT RESOLVED. HAS 15 HEADACHES A MONTH TAKE ONE TABLET BY MOUTH AT THE ONSET OF A HEADACHE- REPEAT IN 2 HOURS IF NOT RESOLVED. HAS 15 HEADACHES A MONTH SOLD: 03/15/2020 [facility] 100 mg 01/20/2020 12:00:00 AM EDT tablet 9 TAKE ONE TABLET BY MOUTH AT THE ONSET OF A HEADACHE- REPEAT IN 2 HOURS IF NOT RESOLVED. HAS 15 HEADACHES A MONTH TAKE ONE TABLET BY MOUTH AT THE ONSET OF A HEADACHE- REPEAT IN 2 HOURS IF NOT RESOLVED. HAS 15 HEADACHES A MONTH SOLD: 02/20/2020 [facility] 15 mg 12/30/2019 12:00:00 AM EDT capsule 30 TAKE ONE TO TWO CAPSULES BY MOUTH IN THE EVENING NEEDED FOR INSOMNIA MAXIMUM DAILY DOSE = 2 TAKE ONE TO TWO CAPSULES BY MOUTH IN THE EVENING NEEDED FOR INSOMNIA MAXIMUM DAILY DOSE = 2 SOLD: 12/31/2019 [facility] 10 mg 12/16/2019 12:00:00 AM EDT tablet 30 TAKE ONE TABLET BY MOUTH EVERY DAY TAKE ONE TABLET BY MOUTH EVERY DAY SOLD: 07/16/2020 [facility] 10 mg 12/16/2019 12:00:00 AM EDT tablet 30 TAKE ONE TABLET BY MOUTH EVERY DAY TAKE ONE TABLET BY MOUTH EVERY DAY SOLD: 12/19/2019 [facility] 10 mg 12/16/2019 12:00:00 AM EDT tablet 30 TAKE ONE TABLET BY MOUTH EVERY DAY TAKE ONE TABLET BY MOUTH EVERY DAY SOLD: 03/13/2020 [facility] 10 mg 12/16/2019 12:00:00 AM EDT tablet 30 TAKE ONE TABLET BY MOUTH EVERY DAY TAKE ONE TABLET BY MOUTH EVERY DAY SOLD: 06/14/2020 [facility] 10 mg 12/16/2019 12:00:00 AM EDT tablet 30 TAKE ONE TABLET BY MOUTH EVERY DAY TAKE ONE TABLET BY MOUTH EVERY DAY SOLD: 05/18/2020 [facility] 10 mg 12/16/2019 12:00:00 AM EDT tablet 30 TAKE ONE TABLET BY MOUTH EVERY DAY TAKE ONE TABLET BY MOUTH EVERY DAY SOLD: 01/30/2020 [facility] 1,250 mcg (50,000 unit) 11/27/2019 12:00:00 AM EDT capsule 12 TAKE ONE CAPSULE BY MOUTH ONCE WEEKLY FOR 12 WEEKS TAKE ONE CAPSULE BY MOUTH ONCE WEEKLY FOR 12 WEEKS SOLD: 11/29/2019 [facility] 15 mg 11/27/2019 12:00:00 AM EDT capsule 30 TAKE 1-2 CAPSULE BY MOUTH EVERY EVENING NEEDED FOR INSOMNIA MAXIMUM DAILY DOSE = 2 CAPSULES TAKE 1-2 CAPSULE BY MOUTH EVERY EVENING NEEDED FOR INSOMNIA MAXIMUM DAILY DOSE = 2 CAPSULES SOLD: 11/29/2019 [facility] 90 mcg/actuation 11/25/2019 12:00:00 AM EDT HFA aerosol inha ler 18 INHALE 2 PUFFS BY MOUTH EVERY 4 HOURS NEEDED FOR FOR SHORTNESS OF BREATH OR WHEEZING INHALE 2 PUFFS BY MOUTH EVERY 4 HOURS NEEDED FOR FOR SHORTNESS OF BREATH OR WHEEZING SOLD: 11/29/2019 [facility] 90 mcg/actuation 11/25/2019 12:00:00 AM EDT HFA aerosol inha ler 18 INHALE 2 PUFFS BY MOUTH EVERY 4 HOURS NEEDED FOR FOR SHORTNESS OF BREATH OR WHEEZING INHALE 2 PUFFS BY MOUTH EVERY 4 HOURS NEEDED FOR FOR SHORTNESS OF BREATH OR WHEEZING SOLD: 12/31/2019 [facility] 100 mg 11/09/2019 12:00:00 AM EST capsule 14 TAKE ONE CAPSULE BY MOUTH TWICE A DAY FOR 7 DAYS TAKE ONE CAPSULE BY MOUTH TWICE A DAY FOR 7 DAYS SOLD: 11/10/2019 [facility] 4 mg 11/09/2019 12:00:00 AM EST tablets,dose pack 21 DIRECTED WITH FOOD DIRECTED WITH FOOD SOLD: 11/10/2019 [facility] 90 mcg/actuation 11/04/2019 12:00:00 AM EST HFA aerosol inha ler 18 INHALE TWO PUFFS BY MOUTH EVERY 4 HOURS NEEDED FOR SHORTNESS OF BREATH OR WHEEZING INHALE TWO PUFFS BY MOUTH EVERY 4 HOURS NEEDED FOR SHORTNESS OF BREATH OR WHEEZING SOLD: 11/08/2019 [facility] 90 mcg/actuation 11/04/2019 12:00:00 AM EST HFA aerosol inha ler 18 INHALE TWO PUFFS BY MOUTH EVERY 4 HOURS NEEDED FOR SHORTNESS OF BREATH OR WHEEZING INHALE TWO PUFFS BY MOUTH EVERY 4 HOURS NEEDED FOR SHORTNESS OF BREATH OR WHEEZING SOLD: 12/19/2019 [facility] 15 mg 10/28/2019 12:00:00 AM EST capsule 30 TAKE 1-2 CAPSULES BY MOUTH EVERY EVENING NEEDED FOR INSOMNIA MAXIMUM DAILY DOSE = 2 CAPSULES TAKE 1-2 CAPSULES BY MOUTH EVERY EVENING NEEDED FOR INSOMNIA MAXIMUM DAILY DOSE = 2 CAPSULES SOLD: 11/01/2019 [facility] 40 mg 10/28/2019 12:00:00 AM EST tablet 90 TAKE ONE TABLET BY MOUTH EVERY DAY TAKE ONE TABLET BY MOUTH EVERY DAY SOLD: 01/30/2020 [facility] Simvastatin 40 MG Oral Tablet SIMVASTATIN 10/28/2019 12:00:00 AM EST tablet 90 TAKE ONE TABLET BY MOUTH EVERY DAY TAKE ONE TABLET BY MOUTH EVERY DAY SOLD: 11/01/2019 [facility] 15 mg 09/27/2019 12:00:00 AM EST capsule 30 TAKE ONE TO TWO CAPSULES BY MOUTH EVERY EVENING NEEDED FOR INSOMNIA MAXIMUM DAILY DOSE = 2 CAPSULES TAKE ONE TO TWO CAPSULES BY MOUTH EVERY EVENING NEEDED FOR INSOMNIA MAXIMUM DAILY DOSE = 2 CAPSULES SOLD: 10/01/2019 [facility] 500 mg 09/16/2019 12:00:00 AM EST tablet 60 TAKE ONE TABLET BY MOUTH TWICE A DAY WITH FOOD NEEDED FOR RIGHT HAND PAIN TAKE ONE TABLET BY MOUTH TWICE A DAY WITH FOOD NEEDED FOR RIGHT HAND PAIN SOLD: 09/17/2019 [facility] 90 mcg/actuation 09/16/2019 12:00:00 AM EST HFA aerosol inha ler 18 INHALE TWO PUFFS BY MOUTH EVERY 4 HOURS NEEDED FOR FOR SHORTNESS OF BREATH OR WHEEZING INHALE TWO PUFFS BY MOUTH EVERY 4 HOURS NEEDED FOR FOR SHORTNESS OF BREATH OR WHEEZING SOLD: 09/17/2019 [facility] 90 mcg/actuation 09/16/2019 12:00:00 AM EST HFA aerosol inha ler 18 INHALE TWO PUFFS BY MOUTH EVERY 4 HOURS NEEDED FOR FOR SHORTNESS OF BREATH OR WHEEZING INHALE TWO PUFFS BY MOUTH EVERY 4 HOURS NEEDED FOR FOR SHORTNESS OF BREATH OR WHEEZING SOLD: 10/16/2019 [facility] Ergocalciferol 10159 UNT Oral Capsule Vitamin D (Ergocalcife rol) 09/16/2019 12:00:00 AM EST active [facility] ([facility]) 1,250 mcg (50,000 unit) 09/16/2019 12:00:00 AM EST capsule 12 TAKE 1 CAPSULE BY MOUTH WEEKLY FOR 12 WEEKS TAKE 1 CAPSULE BY MOUTH WEEKLY FOR 12 WEEKS SOLD: 09/17/2019 [facility] 4 mg 08/30/2019 12:00:00 AM EST tablets,dose pack 21 USE PER PACKAGE INSTRUCTIONS USE PER PACKAGE INSTRUCTIONS SOLD: 08/30/2019 [facility] 15 mg 08/30/2019 12:00:00 AM EST capsule 30 TAKE 1-2 CAPSULES BY MOUTH EVERY EVENING NEEDED FOR INSOMNIA MAXIMUM DAILY DOSE = 2 CAPSULES TAKE 1-2 CAPSULES BY MOUTH EVERY EVENING NEEDED FOR INSOMNIA MAXIMUM DAILY DOSE = 2 CAPSULES SOLD: 08/30/2019 [facility] 100 mg 08/29/2019 12:00:00 AM EST capsule 14 TAKE ONE CAPSULE BY MOUTH TWICE A DAY FOR 7 DAYS TAKE ONE CAPSULE BY MOUTH TWICE A DAY FOR 7 DAYS SOLD: 08/30/2019 [facility] 100 mg 08/05/2019 12:00:00 AM EST tablet 30 TAKE ONE TABLET BY MOUTH EVERY DAY TAKE ONE TABLET BY MOUTH EVERY DAY SOLD: 10/16/2019 [facility] 100 mg 08/05/2019 12:00:00 AM EST tablet 30 TAKE ONE TABLET BY MOUTH EVERY DAY TAKE ONE TABLET BY MOUTH EVERY DAY SOLD: 12/31/2019 [facility] 100 mg 08/05/2019 12:00:00 AM EST tablet 30 TAKE ONE TABLET BY MOUTH EVERY DAY TAKE ONE TABLET BY MOUTH EVERY DAY SOLD: 08/11/2019 [facility] 100 mg 08/05/2019 12:00:00 AM EST tablet 30 TAKE ONE TABLET BY MOUTH EVERY DAY TAKE ONE TABLET BY MOUTH EVERY DAY SOLD: 09/17/2019 [facility] 100 mg 08/05/2019 12:00:00 AM EST tablet 30 TAKE ONE TABLET BY MOUTH EVERY DAY TAKE ONE TABLET BY MOUTH EVERY DAY SOLD: 11/15/2019 [facility] 100 mg 08/05/2019 12:00:00 AM EST tablet 30 TAKE ONE TABLET BY MOUTH EVERY DAY TAKE ONE TABLET BY MOUTH EVERY DAY SOLD: 01/30/2020 [facility] Sertraline 100 MG Oral Tablet Sertraline HCL 08/04/2019 12:00:00 AM EST active [facility] ([facility]) 15 mg 08/02/2019 12:00:00 AM EST capsule 30 TAKE 1-2 CAPSULES BY MOUTH EVERY EVENING NEEDED MAXIMUM DAILY DOSE = 2 TAKE 1-2 CAPSULES BY MOUTH EVERY EVENING NEEDED MAXIMUM DAILY DOSE = 2 SOLD: 08/04/2019 [facility] 90 mcg/actuation 07/31/2019 12:00:00 AM EST HFA aerosol inha ler 18 INHALE TWO PUFFS BY MOUTH EVERY 4 HOURS NEEDED FOR SHORTNESS OF BREATH OR WHEEZING INHALE TWO PUFFS BY MOUTH EVERY 4 HOURS NEEDED FOR SHORTNESS OF BREATH OR WHEEZING SOLD: 08/04/2019 [facility] 90 mcg/actuation 07/31/2019 12:00:00 AM EST HFA aerosol inha ler 18 INHALE TWO PUFFS BY MOUTH EVERY 4 HOURS NEEDED FOR SHORTNESS OF BREATH OR WHEEZING INHALE TWO PUFFS BY MOUTH EVERY 4 HOURS NEEDED FOR SHORTNESS OF BREATH OR WHEEZING SOLD: 08/30/2019 [facility] Prednisone 20 MG Oral Tablet Prednisone 07/26/2019 12:00:00 AM EST active [facility] ([facility]) Wrist Splint Left/Right 07/26/2019 12:00:00 AM EST active [facility] ([facility], [facility]) 20 mg 07/26/2019 12:00:00 AM EST tablet 10 TAKE ONE TABLET BY MOUTH TWICE A DAY FOR 5 DAYS TAKE ONE TABLET BY MOUTH TWICE A DAY FOR 5 DAYS SOLD: 2018 [facility] 100 mg 07/08/2019 12:00:00 AM EST tablet 9 TAKE 1 AT ONSET OF FOR HEADACHE - REPEAT IN 2 HOURS IF NOT RESOLVED TAKE 1 AT ONSET OF FOR HEADACHE -REPEAT IN 2 HOURS IF NOT RESOLVED SOLD: 12/19/2019 [facility] 100 mg 07/08/2019 12:00:00 AM EST tablet 9 TAKE 1 AT ONSET OF FOR HEADACHE - REPEAT IN 2 HOURS IF NOT RESOLVED TAKE 1 AT ONSET OF FOR HEADACHE -REPEAT IN 2 HOURS IF NOT RESOLVED SOLD: 09/17/2019 [facility] 100 mg 07/08/2019 12:00:00 AM EST tablet 9 TAKE 1 AT ONSET OF FOR HEADACHE - REPEAT IN 2 HOURS IF NOT RESOLVED TAKE 1 AT ONSET OF FOR HEADACHE -REPEAT IN 2 HOURS IF NOT RESOLVED SOLD: 11/10/2019 [facility] 100 mg 07/08/2019 12:00:00 AM EST tablet 9 TAKE 1 AT ONSET OF FOR HEADACHE - REPEAT IN 2 HOURS IF NOT RESOLVED TAKE 1 AT ONSET OF FOR HEADACHE -REPEAT IN 2 HOURS IF NOT RESOLVED SOLD: 08/11/2019 [facility] 100 mg 07/08/2019 12:00:00 AM EST tablet 9 TAKE 1 AT ONSET OF FOR HEADACHE - REPEAT IN 2 HOURS IF NOT RESOLVED TAKE 1 AT ONSET OF FOR HEADACHE -REPEAT IN 2 HOURS IF NOT RESOLVED SOLD: 10/16/2019 [facility] 1 mg 06/17/2019 12:00:00 AM EDT tablet 56 TAKE ONE TABLET BY MOUTH TWO TIMES A DAY TAKE ONE TABLET BY MOUTH TWO TIMES A DAY SOLD: 10/16/2019 [facility] 10 mg 06/03/2019 12:00:00 AM EDT tablet 30 TAKE ONE TABLET BY MOUTH EVERY DAY TAKE ONE TABLET BY MOUTH EVERY DAY SOLD: 08/04/2019 [facility] 10 mg 06/03/2019 12:00:00 AM EDT tablet 30 TAKE ONE TABLET BY MOUTH EVERY DAY TAKE ONE TABLET BY MOUTH EVERY DAY SOLD: 08/30/2019 [facility] 10 mg 06/03/2019 12:00:00 AM EDT tablet 30 TAKE ONE TABLET BY MOUTH EVERY DAY TAKE ONE TABLET BY MOUTH EVERY DAY SOLD: 11/15/2019 [facility] 10 mg 06/03/2019 12:00:00 AM EDT tablet 30 TAKE ONE TABLET BY MOUTH EVERY DAY TAKE ONE TABLET BY MOUTH EVERY DAY SOLD: 10/16/2019 [facility] Chantix Starting Month Chantix Starting Month Tristan 2018 12:00:00 AM EDT ORAL completed [facility] ([facility]) Simvastatin 40 MG Oral Tablet SIMVASTATIN 04/29/2019 12:00:00 AM EDT tablet 90 TAKE ONE TABLET BY MOUTH EVERY DAY TAKE ONE TABLET BY MOUTH EVERY DAY SOLD: 08/04/2019 [facility] Insurance Providers Payer name Policy type / Coverage type Policy ID Covered libertarian ID Covered libertarian's relationship to evans Policy Evans Plan Information [facility] COMMUNITY PLAN [facility] [id number] [facility] O [id number] S [id number] [facility] Community Plan Commercial [id number] Self [id number] [facility] Health Maintenance Organization (HMO) [id number] Self [id number] ANSI-Medicaid [id number] ANSI-Medicaid [id number] ANSI-Medicaid [id number] ANSI-Medicaid [id number] ANSI-Medicaid [id number] ANSI-Medicaid [id number] ANSI-Medicaid [id number] ANSI-Medicaid [id number] ANSI-Medicaid [id number] ANSI-Medicaid [id number] ANSI-Medicaid [id number] ANSI-Medicaid [id number] ANSI-Medicaid [id number] ANSI-Medicaid [id number] [facility] Health Maintenance Organization (HMO) [id number] Self [id number] ANSI-Medicaid [id number] ANSI-Medicaid [id number] ANSI-Medicaid [id number] ANSI-Medicaid [id number] ANSI-Medicaid [id number] ANSI-Medicaid [id number] [facility] COMMUNITY PLAN MCDHMO [id number] SP [id number] [facility] MEDICAID REGINO HMO [id number] S [id number] [facility] I [id number] Self [id number] [facility] I [id number] Self [id number] [facility] COMMUNITY PLAN MCDHMO [id number] SP [id number] [facility] COMMUNITY PLAN MCDHMO [id number] SP [id number] [facility] COMMUNITY PLAN MCDHMO [id number] SP [id number] [facility] COMMUNITY PLAN MCDHMO [id number] SP [id number] [facility] Health Maintenance Organization (HMO) Self [facility] Health Maintenance Organization (HMO) Self MEDICAID [id number] SP [id number] Results ID Date Data Source [id number] 03/20/2020 08:40:00 AM EDT [facility] ([facility]) Name Value Range Interpretation Code Description Data Marie rce(s) Supporting Document(s) Vitamin B12 Level 240 pg/mL Normal (applies to non-numeri c results) [facility] ([facility]) VITAMIN B12 NORMAL RANGE NORMAL 247 - 911 PG/ML INDETERMINATE 211 - 246 PG/ML DEFICIENT LESS THAN 211 PG/ML Folate 10.0 ng/mL Normal (applies to non-numeric resul ts) [facility] ([facility]) FOLATE NORMAL RANGE NORMAL GREATER THAN 5.4 NG/ML INDETERMINATE 3.4-5.4 NG/ML DEFICIENT LESS THAN 3.4 NG/ML ID Date Data Source [id number] 03/20/2020 08:40:00 AM EDT [facility] ([facility]) Name Value Range Interpretation Code Description Data Marie rce(s) Supporting Document(s) Cholesterol Level 213 mg/dL Above high normal [facility] ([facility]) Triglycerides Level 147 mg/dL Normal (applies to non-nume frankie results) [facility] ([facility]) HDL Cholesterol 49 mg/dL Normal (applies to non-numeric results) [facility] ([facility]) Cholesterol Risk Ratio 4.346 Normal (applies to non-n umeric results) [facility] ([facility]) LDL Cholesterol 135 mg/dL Above high normal [facility] ([facility]) Non-HDL-C 164 mg/dL Normal (applies to non-numeric resul ts) [facility] ([facility]) ID Date Data Source [id number] 03/20/2020 08:40:00 AM EDT [facility] ([facility]) Name Value Range Interpretation Code Description Data Marie rce(s) Supporting Document(s) Calcidiol [Mass/volume] in Serum or Plasma 81.2 ng/mL 30.0- 100.0 Normal (applies to non-numeric results) [facility] ([facility]) ID Date Data Source [id number] 03/20/2020 08:40:00 AM EDT [facility] ([facility]) Name Value Range Interpretation Code Description Data Marie rce(s) Supporting Document(s) Thyroid Stimulating Hormone 2.760 uIU/ML 0.358-3.740 Norm al (applies to non- numeric results) [facility] ([facility]) Free T4 0.98 ng/dL 0.76-1.46 Normal (applies to non-numeric resul ts) [facility] ([facility]) ID Date Data Source [id number] 03/20/2020 08:40:00 AM EDT [facility] ([facility]) Name Value Range Interpretation Code Description Data Marie rce(s) Supporting Document(s) Glucose, Fasting 109 mg/dL 70-100 Above high normal [facility]) Glomerular Filtration Rate Laboratory test result Normal (applies to non- numeric results) [facility]) <content>Units are mL/min/1.73 m2</content>
<content></content>
<content>Chronic Kidney Disease Staging per NKF:</content>
<content></content>
<content>Stage I & II GFR >=60 Normal to Mildly Decreased</content>
<content>Stage III GFR 30- 59 Moderately Decreased</content>
<content>Stage IV GFR 15-29 Severely Decreased</content>
<content>Stage V GFR <15 Very Little GFR Left</content>
<content>ESRD GFR <15 on MANAGER COLLECTION</content>
<content></content> Blood Urea Nitrogen 15 mg/dL 7-18 Normal (applies to non-nume frankie results) [facility] ([facility]) Creatinine For GFR 0.82 mg/dL 0.55-1.30 Normal (applies to non -numeric results) [facility] ([facility]) Chloride Level 107 meq/L 98-107 Normal (applies to non-numeric r esults) [facility] ([facility]) Sodium Level 141 meq/L 136-145 Normal (applies to non-numeric res ults) [facility] ([facility]) Potassium Serum 4.3 meq/L 3.5-5.1 Normal (applies to non-numeric results) [facility] ([facility]) Anion Gap 6 meq/L 8-16 Below low normal [facility] ( [facility]) Carbon Dioxide Level 28 meq/L 21-32 Normal (applies to non-num elodia results) [facility] ([facility]) Calcium Level 8.8 mg/dL 8.5-10.1 Normal (applies to non-numeric re sults) [facility] ([facility]) Alkaline Phosphatase 95 U/L 45-117 Normal (applies to non-num elodia results) [facility] ([facility]) Ast/Sgot 15 U/L 7-37 Normal (applies to non-numeric resul ts) [facility] ([facility]) Alt/SGPT 27 U/L 12-78 Normal (applies to non-numeric resul ts) [facility] ([facility]) Bilirubin,Total 0.3 mg/dL 0.2-1.0 Normal (applies to non-numeric results) [facility] ([facility]) Total Protein 7.0 GM/DL 6.4-8.2 Normal (applies to non-numeric re sults) [facility] ([facility]) Albumin 3.9 GM/DL 3.2-5.2 Normal (applies to non-numeric resul ts) [facility] ([facility]) Albumin/Globulin Ratio 1.3 1.2-2.2 Normal (applies to non-n umeric results) [facility] ([facility]) ID Date Data Source [id number] 03/20/2020 08:40:00 AM EDT [facility] ([facility]) Name Value Range Interpretation Code Description Data Marie rce(s) Supporting Document(s) White Blood Count 7.6 10 4.0-10.0 Normal (applies to non-numeri c results) [facility] ([facility]) Hemoglobin 14.3 g/dL 12.0-15.5 Normal (applies to non-numeric resul ts) [facility] ([facility]) Hematocrit 43.9 % 36.0-47.0 Normal (applies to non-numeric resul ts) [facility] ([facility]) Red Blood Count 4.84 10 4.00-5.40 Normal (applies to non-numeric results) [facility] ([facility]) Mean Corpuscular Hemoglobin 29.5 pg 27.0-33.0 Norm al (applies to non-numeric results) [facility] ([facility]) Mean Corpuscular Volume 90.7 fl 80.0-96.0 Normal ( applies to non-numeric results) [facility] ([facility]) Mean Corpuscular HGB Conc 32.6 g/dL 32.0-36.5 Normal (applies to non-numeric results) [facility] ([facility]) Red Cell Distribution Width 13.8 % 11.5-14.5 Norm al (applies to non-numeric results) [facility] ([facility]) Platelet Count, Automated 154 10 150-450 Normal (applies to non-numeric results) [facility] ([facility]) Neutrophils % 58.4 % 36.0-66.0 Normal (applies to non-numeric re sults) [facility] ([facility]) Pershing % 5.5 % 0.0-5.0 Above high normal [facility] ([facility]) Lymph % 30.1 % 24.0-44.0 Normal (applies to non-numeric resul ts) [facility] ([facility]) Eos % 4.5 % 0.0-3.0 Above high normal [facility] ([facility]) Immature Granulocyte % 0.7 % 0-3.0 Normal (applies to non-n umeric results) [facility] ([facility]) Nucleated Red Blood Cell % 0.0 % 0-0 Normal (applies to n on-numeric results) [facility] ([facility]) Baso % 0.8 % 0.0-1.0 Normal (applies to non-numeric resul ts) [facility] ([facility]) Pershing # 0.4 10 0.0-0.8 Normal (applies to non-numeric resul ts) [facility] ([facility]) Lymph # 2.3 10 1.5-5.0 Normal (applies to non-numeric resul ts) [facility] ([facility]) Neutrophils # 4.4 10 1.5-8.5 Normal (applies to non-numeric re sults) [facility] ([facility]) Eos # 0.3 10 0.0-0.5 Normal (applies to non-numeric resul ts) [facility] ([facility]) Baso # 0.1 10 0.0-0.2 Normal (applies to non-numeric resul ts) [facility] ([facility]) Procedure Social History Code Duration Value Status Description Data Source(s ) Smoking 06/29/2020 12:00:00 AM EDT Former Cigarette Smoker com pleted Former Cigarette Smoker [facility] ([facility]) Vital Signs ID Date Data Source [id number] Name Value Range Interpretation Code Description Data Source(s) Pitman body weight 100 [lb_av] 100 [lb_av] [facility] ([facility]) Oxygen saturation in Arterial blood by Pulse oximetry 94 % 94 % [facility] ([facility]) Body temperature 97.3 [degF] 97.3 [degF] [facility] ([facility]) Respiratory rate 16 /min 16 /min [facility] ( [facility]) Heart rate 99 /min 99 /min [facility] ([facility]) Body mass index (BMI) [Ratio] 35.6 kg/m2 35.6 k g/m2 [facility] ([facility]) Body weight 170.50 [lb_av] 170.50 [lb_av] [facility] ([facility]) Body height 58.0 [in_i] 58.0 [in_i] [facility] ([facility]) 4'10" Diastolic blood pressure 82 mm[Hg] 82 mm[Hg] [facility] ([facility]) Systolic blood pressure 118 mm[Hg] 118 mm[Hg] [facility] ([facility]) Pitman body weight 100 [lb_av] 100 [lb_av] [facility] ([facility]) Oxygen saturation in Arterial blood by Pulse oximetry 96 % 96 % [facility] ([facility]) Body temperature 97.6 [degF] 97.6 [degF] [facility] ([facility]) Respiratory rate 18 /min 18 /min [facility] ( [facility]) Heart rate 78 /min 78 /min [facility] ([facility]) Body mass index (BMI) [Ratio] 36.4 kg/m2 36.4 k g/m2 [facility] ([facility]) Body weight 174.38 [lb_av] 174.38 [lb_av] [facility] ([facility]) Body height 58.0 [in_i] 58.0 [in_i] [facility] ([facility]) 4'10" Diastolic blood pressure 84 mm[Hg] 84 mm[Hg] [facility] ([facility]) Systolic blood pressure 124 mm[Hg] 124 mm[Hg] [facility] ([facility]) Oxygen saturation in Arterial blood by Pulse oximetry 97 % 97 % [facility] ([facility]) Body temperature 97.3 [degF] 97.3 [degF] [facility] ([facility]) Respiratory rate 22 /min 22 /min [facility] ( [facility]) Heart rate 88 /min 88 /min [facility] ([facility]) Body mass index (BMI) [Ratio] 37.6 kg/m2 37.6 k g/m2 [facility] ([facility]) Body weight 180.12 [lb_av] 180.12 [lb_av] [facility] ([facility]) Body height 58.0 [in_i] 58.0 [in_i] [facility] ([facility]) 4'10" Diastolic blood pressure 84 mm[Hg] 84 mm[Hg] [facility] ([facility]) Systolic blood pressure 124 mm[Hg] 124 mm[Hg] [facility] ([facility]) Body mass index (BMI) [Ratio] 34.2 kg/m2 34.2 k g/m2 [facility] ([facility]) Body height 60 [in_i] 60 [in_i] [facility] ([facility]) 5'0" Body weight 175.00 [lb_av] 175.00 [lb_av] [facility] ([facility]) Body temperature 98.1 [degF] 98.1 [degF] [facility] ([facility]) Oxygen saturation in Arterial blood by Pulse oximetry 96 % 96 % [facility] ([facility]) Respiratory rate 16 /min 16 /min [facility] ( [facility]) Heart rate 81 /min 81 /min [facility] ([facility], [facility]) Diastolic blood pressure 82 mm[Hg] 82 mm[Hg] [facility] ([facility]) Systolic blood pressure 126 mm[Hg] 126 mm[Hg] [facility] ([facility])
[2020-09-15] MEDS ORDERED: DIPH50CA PO (19:30)
[2020-09-15] MEDS ORDERED: FAMOTIDINE INJ 20MG/2ML VIAL (S0028 PER 1) IVP ONE (19:45)
[2020-09-15] MEDS ORDERED: methylPREDNISolone 125MG 2ML VIAL IV ONE (19:45)
[2020-09-15] MEDS ORDERED: NS 1,000 ML IV ONE (19:45)
[2020-09-15] MEDS ORDERED: diphenhydrAMINE 50MG/ML VIAL (J1200) IV ONE (19:45)
[2020-09-15] MEDS: COMBIVENT RESPIMAT 100-20MCG INHALER 4GM INH SCH ×3 (20:20→21:04)
[2020-09-15 20:21] LABS: BASO % 0.1 % (0.0-1.0); HEMATOCRIT 45.4 % (36.0-47.0); HEMOGLOBIN 14.7 g/dl (12.0-15.5); LYMPH # 1.1 10^3/uL (1.5-5.0); LYMPH % 11.2 % (24.0-44.0); MEAN CORPUSCULAR HEMOGLOBIN 29.2 pg (27.0-33.0); MEAN CORPUSCULAR HGB CONC 32.4 g/dl (32.0-36.5); MEAN CORPUSCULAR VOLUME 90.1 fl (80.0-96.0); MONO # 0.1 10^3/uL (0.0-0.8); MONO % 1.2 % (0.0-5.0); NEUTROPHILS # 8.5 10^3/uL (1.5-8.5); NEUTROPHILS % 87.1 % (36.0-66.0); PLATELET COUNT, AUTOMATED 180 10^3/uL (150-450); RED BLOOD COUNT 5.04 10^6/uL (4.00-5.40); WHITE BLOOD COUNT 9.8 10^3/uL (4.0-10.0)
[2020-09-15 20:25] LABS: CALCIUM LEVEL 9.4 MG/DL (8.5-10.1); CREATININE FOR GFR 1.16 MG/DL (0.55-1.30); GLOMERULAR FILTRATION RATE 52.2 (>51); POTASSIUM SERUM 4.3 MEQ/L (3.5-5.1)
--- NOTE | 2020-09-15 21:06 | REPVR ---
PROCEDURE INFORMATION: Exam: XR Chest, 2 Views Exam date and time: 09/15/2020 8:35 PM Age: 50 years old Clinical indication: Cough and dyspnea; Additional info: Dyspnea/cough TECHNIQUE: Imaging protocol: XR of the chest Views: 2 views. COMPARISON: CR CHEST 2 VIEW 12/02/2016 2:09 PM FINDINGS: Lungs: Unremarkable. No consolidation. Pleural space: Unremarkable. No pleural effusion. No pneumothorax. Heart/Mediastinum: Unremarkable. No cardiomegaly. Bones/joints: Unremarkable. IMPRESSION: No acute findings. Electronically signed by: Liyah Morales On 09/15/2020 21:07:05 PM
[2020-09-15] MEDS ORDERED: AZIT-12 PO (21:50)
[2020-09-15] MEDS ORDERED: COMBAER6 INH (21:50)
[2020-09-15] MEDS ORDERED: PRED20TA PO (21:50)
[2020-09-15] MEDS ORDERED: AZITHROMYCIN 250MG TABLET PO ONE (22:00)
--- OUTSIDE RECORDS SUMMARY | 2020-09-15 22:09 | CCD ---
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 If you continue you may have access to information: Regarding HIV / AIDS; Provided by facilities licensed or operated by the [facility] Office of Mental Health; or Provided by the [facility] Office for People With Developmental Disabilities. If such information is present, then the following [facility] mandated warning applies: This information has [...] law may result in a fine or long-term sentence or both. A general authorization for the release of medical or other information is NOT sufficient authorization for further disc losure. Family History Family Member Name Family Member Gender Family Member Status Date o f Status Description Data Source(s) Unknown Male Problem [facility] ([facility]) Unknown Unknown Problem [facility] ([facility]) Unknown Unknown Problem [facility] ([facility] ) Unknown Unknown Problem [facility] ([facility] ) Unknown Unknown Problem [facility] ([facility] ) Unknown Unknown Problem [facility] ([facility] ) Unknown Unknown Problem [facility] ([facility], ) Encounters Encounter Providers Location Date Indications Data Source(s ) Outpatient Attender: [facility]ricio [facility]/20/2020 01:00:00 PM EDT [facility] ([facility]) Outpatient Attender: Fabricio [facility] 09/16/2019 09:20:00 AM EST [facility] ([facility]) Outpatient Attender: EDU mattson 07/26/2019 07:05:00 AM EST [facility] ([facility] Immunizations Vaccine Date [...] 06/29/2020 12:00:00 AM EDT TOPICAL active [facility] ([facility]) Sulfamethoxazole 800 MG / Trimethoprim 160 MG [...] 1 02/25/2020 12:00:00 AM EDT completed [facility] ([facility]) 21 mg/24 hr 02/25/2020 12:00:00 AM EDT [...] 12:00: 00 AM EDT ORAL active [facility] ([facility]) 113-14 mcg/actuation 01/22/2020 12:00:00 AM EDT aerosol [...] WHEEZING SOLD: 10/16/2019 [facility] Ergocalciferol 80943 UNT Oral Capsule Vitamin D (Ergocalcife rol) 09/16/2019 12:00:00 AM EST active M EDENT ([facility]) 1,250 mcg (50,000 unit) 09/16/2019 12:00:00 AM [...] HCL 08/04/2019 12:00:00 AM EST active [facility] ([facility]) 15 mg 08/02/2019 12:00:00 AM EST capsule [...] Prednisone 07/26/2019 12:00:00 AM EST active [facility] ([facility]) Wrist Splint Left/Right 07/26/2019 12:00:00 AM EST active [facility] ([facility]) 20 mg 07/26/2019 12:00:00 AM EST [...] Tristan 2018 12:00:00 AM EDT ORAL completed [facility]) Simvastatin 40 MG Oral Tablet SIMVASTATIN 04/29/2019 12:00:00 AM EDT tablet 90 TAKE ONE TABLET BY MOUTH EVERY DAY TAKE ONE TABLET BY MOUTH EVERY DAY SOLD: 08/04/2019 [facility] Insurance Providers Payer name Policy type / Coverage type Policy ID Covered constitution party ID Covered constitution party's relationship to evans Policy Evans Plan Information [facility] [id number] SP [id number] [facility] [id number] SP [id number] [facility] [id number] S [id number] [facility] Community Plan Commercial [id number] Self [id number] [facility] Health Maintenance Organization (HMO) [id number] Self [id number] ANSI-Medicaid [id number] ANSI-Medicaid [id number] ANSI-Medicaid [id number] ANSI-Medicaid [id number] ANSI-Medicaid [id number] ANSI-Medicaid [id number] ANSI-Medicaid [id number] ANSI-Medicaid [id number] ANSI-Medicaid [id number] ANSI-Medicaid [id number] ANSI-Medicaid [id number] ANSI-Medicaid [id number] ANSI-Medicaid [id number] ANSI-Medicaid [id number] [facility] Health Maintenance Organization (HMO) [id number] Self [id number] ANSI-Medicaid [id number] ANSI-Medicaid [id number] ANSI-Medicaid [id number] ANSI-Medicaid [id number] ANSI-Medicaid [id number] ANSI-Medicaid [id number] [facility] MEDICAID REGINO HMO [id number] S [id number] [facility] I [id number] Self [id number] [facility] I [id number] Self [id number] [facility] MCDHMO [id number] SP [id number] [facility] MCDHMO [id number] SP [id number] [facility] MCDHMO [id number] SP [id number] [facility] MCDHMO [id number] SP [id number] [facility] Maintenance Organization (HMO) Self [facility] Health Maintenance Organization (HMO) Self MEDICAID [id number] SP [id number] Results ID Date Data Source [id number] 03/20/2020 08:40:00 AM EDT [facility] ([facility]) Name Value Range Interpretation Code Description Data Marie rce(s) Supporting Document(s) Vitamin B12 Level 240 pg/mL Normal (applies to non-numeri c results) [facility] ([facility]) VITAMIN B12 NORMAL RANGE NORMAL 247 - 911 PG/ML INDETERMINATE 211 - 246 PG/ML DEFICIENT LESS THAN 211 PG/ML Folate 10.0 ng/mL Normal (applies to non-numeric resul ts) [facility] ([facility]) FOLATE NORMAL RANGE NORMAL GREATER THAN 5.4 NG/ML INDETERMINATE 3.4-5.4 NG/ML DEFICIENT LESS THAN 3.4 NG/ML ID Date Data Source [id number] 03/20/2020 08:40:00 AM EDT [facility] ([facility]) Name Value Range Interpretation Code Description Data Marie rce(s) Supporting Document(s) Cholesterol Level 213 mg/dL Above high normal [facility] ([facility]) Triglycerides Level 147 mg/dL Normal (applies to non-nume frankie results) [facility] ([facility]) HDL Cholesterol 49 mg/dL Normal (applies to non-numeric results) [facility] ([facility]) Cholesterol Risk Ratio 4.346 Normal (applies to non-n umeric results) [facility] ([facility]) LDL Cholesterol 135 mg/dL Above high normal [facility] ([facility]) Non-HDL-C 164 mg/dL Normal (applies to non-numeric resul ts) [facility] ([facility]) ID Date Data Source [id number] 03/20/2020 08:40:00 AM EDT [facility] ([facility]) Name Value Range Interpretation Code Description Data Marie rce(s) Supporting Document(s) Calcidiol [Mass/volume] in Serum or Plasma 81.2 ng/mL 30.0- 100.0 Normal (applies to non-numeric results) [facility] ([facility]) ID Date Data Source [id number] 03/20/2020 08:40:00 AM EDT [facility] ([facility]) Name Value Range Interpretation Code Description Data Marie rce(s) Supporting Document(s) Thyroid Stimulating Hormone 2.760 uIU/ML 0.358-3.740 Norm al (applies to non- numeric results) [facility] ([facility]) Free T4 0.98 ng/dL 0.76-1.46 Normal (applies to non-numeric resul ts) [facility] ([facility]) ID Date Data Source [id number] 03/20/2020 08:40:00 AM EDT [facility] ([facility]) Name Value Range Interpretation Code Description Data Marie rce(s) Supporting Document(s) Glucose, Fasting 109 mg/dL 70-100 Above high normal [facility] Glomerular Filtration Rate Laboratory test result Normal (applies to non- numeric results) [facility]) <content>Units are mL/min/1.73 m2</content>
<content></content>
<content>Chronic Kidney Disease Staging per NKF:</content>
<content></content>
<content>Stage I & II GFR >=60 Normal to Mildly Decreased</content>
<content>Stage III GFR 30- 59 Moderately Decreased</content>
<content>Stage IV GFR 15-29 Severely Decreased</content>
<content>Stage V GFR <15 Very Little GFR Left</content>
<content>ESRD GFR <15 on [employer]INTED [employer] REPAIRER</content>
<content></content> Blood Urea Nitrogen 15 mg/dL 7-18 Normal (applies to non-nume frankie results) [facility] ([facility]) Creatinine For GFR 0.82 mg/dL 0.55-1.30 Normal (applies to non -numeric results) [facility] ([facility]) Chloride Level 107 meq/L 98-107 Normal (applies to non-numeric r esults) [facility] ([facility]) Sodium Level 141 meq/L 136-145 Normal (applies to non-numeric res ults) [facility] ([facility]) Potassium Serum 4.3 meq/L 3.5-5.1 Normal (applies to non-numeric results) [facility] ([facility]) Anion Gap 6 meq/L 8-16 Below low normal [facility] ( [facility]) Carbon Dioxide Level 28 meq/L 21-32 Normal (applies to non-num elodia results) [facility] ([facility]) Calcium Level 8.8 mg/dL 8.5-10.1 Normal (applies to non-numeric re sults) [facility] ([facility]) Alkaline Phosphatase 95 U/L 45-117 Normal (applies to non-num elodia results) [facility] ([facility]) Ast/Sgot 15 U/L 7-37 Normal (applies to non-numeric resul ts) [facility] ([facility]) Alt/SGPT 27 U/L 12-78 Normal (applies to non-numeric resul ts) [facility] ([facility]) Bilirubin,Total 0.3 mg/dL 0.2-1.0 Normal (applies to non-numeric results) [facility] ([facility]) Total Protein 7.0 GM/DL 6.4-8.2 Normal (applies to non-numeric re sults) [facility] ([facility]) Albumin 3.9 GM/DL 3.2-5.2 Normal (applies to non-numeric resul ts) [facility] ([facility]) Albumin/Globulin Ratio 1.3 1.2-2.2 Normal (applies to non-n umeric results) [facility] ([facility]) ID Date Data Source [id number] 03/20/2020 08:40:00 AM EDT [facility] ([facility]) Name Value Range Interpretation Code Description Data Marie rce(s) Supporting Document(s) White Blood Count 7.6 10 4.0-10.0 Normal (applies to non-numeri c results) [facility] ([facility]) Hemoglobin 14.3 g/dL 12.0-15.5 Normal (applies to non-numeric resul ts) [facility] ([facility]) Hematocrit 43.9 % 36.0-47.0 Normal (applies to non-numeric resul ts) [facility] ([facility]) Red Blood Count 4.84 10 4.00-5.40 Normal (applies to non-numeric results) [facility] ([facility]) Mean Corpuscular Hemoglobin 29.5 pg 27.0-33.0 Norm al (applies to non-numeric results) [facility] ([facility]) Mean Corpuscular Volume 90.7 fl 80.0-96.0 Normal ( applies to non-numeric results) [facility] ([facility]) Mean Corpuscular HGB Conc 32.6 g/dL 32.0-36.5 Normal (applies to non-numeric results) [facility] ([facility]) Red Cell Distribution Width 13.8 % 11.5-14.5 Norm al (applies to non-numeric results) [facility] ([facility]) Platelet Count, Automated 154 10 150-450 Normal (applies to non-numeric results) [facility] ([facility]) Neutrophils % 58.4 % 36.0-66.0 Normal (applies to non-numeric re sults) [facility] ([facility]) [place] % 5.5 % 0.0-5.0 Above high normal [facility] ([facility]) Lymph % 30.1 % 24.0-44.0 Normal (applies to non-numeric resul ts) [facility] ([facility]) Eos % 4.5 % 0.0-3.0 Above high normal [facility] ([facility]) Immature Granulocyte % 0.7 % 0-3.0 Normal (applies to non-n umeric results) [facility] ([facility]) Nucleated Red Blood Cell % 0.0 % 0-0 Normal (applies to n on-numeric results) [facility] ([facility]) Baso % 0.8 % 0.0-1.0 Normal (applies to non-numeric resul ts) [facility] ([facility]) [place] # 0.4 10 0.0-0.8 Normal (applies to non-numeric resul ts) [facility] ([facility]) Lymph # 2.3 10 1.5-5.0 Normal (applies to non-numeric resul ts) [facility] ([facility]) Neutrophils # 4.4 10 1.5-8.5 Normal (applies to non-numeric re sults) [facility] ([facility]) Eos # 0.3 10 0.0-0.5 Normal (applies to non-numeric resul ts) [facility] ([facility]) Baso # 0.1 10 0.0-0.2 Normal (applies to non-numeric resul ts) [facility] ([facility]) Procedure Social History Code Duration Value Status Description Data Source(s ) Smoking 06/29/2020 12:00:00 AM EDT Former Cigarette Smoker com pleted Former Cigarette Smoker [facility] ([facility]) Vital Signs ID Date Data Source UNK Name Value Range Interpretation Code Description Data Source(s) [place] body weight 100 [lb_av] 100 [lb_av] [facility] T ([facility]) Oxygen saturation in Arterial blood by Pulse oximetry 94 % 94 % [facility] ([facility]) Body temperature 97.3 [degF] 97.3 [degF] [facility] ([facility]) Respiratory rate 16 /min 16 /min [facility] ( [facility]) Heart rate 99 /min 99 /min [facility] ([facility]) Body mass index (BMI) [Ratio] 35.6 kg/m2 35.6 k g/m2 [facility] ([facility]) Body weight 170.50 [lb_av] 170.50 [lb_av] [facility] T ([facility]) Body height 58.0 [in_i] 58.0 [in_i] [facility] ([facility] 4'10" Diastolic blood pressure 82 mm[Hg] 82 mm[Hg] [facility] ([facility]) Systolic blood pressure 118 mm[Hg] 118 mm[Hg] M [facility] ([facility]) [place] body weight 100 [lb_av] 100 [lb_av] [facility] T ([facility]) Oxygen saturation in Arterial blood by Pulse oximetry 96 % 96 % [facility] ([facility]) Body temperature 97.6 [degF] 97.6 [degF] [facility] ([facility]) Respiratory rate 18 /min 18 /min [facility] ( [facility]) Heart rate 78 /min 78 /min [facility] ([facility]) Body mass index (BMI) [Ratio] 36.4 kg/m2 36.4 k g/m2 [facility] ([facility]) Body weight 174.38 [lb_av] 174.38 [lb_av] [facility] ([facility]) Body height 58.0 [in_i] 58.0 [in_i] [facility] ([facility] 4'10" Diastolic blood pressure 84 mm[Hg] 84 mm[Hg] [facility] ([facility]) Systolic blood pressure 124 mm[Hg] 124 mm[Hg] M [facility] ([facility]) Oxygen saturation in Arterial blood by Pulse oximetry 97 % 97 % [facility] ([facility]) Body temperature 97.3 [degF] 97.3 [degF] [facility] ([facility]) Respiratory rate 22 /min 22 /min [facility] ( [facility]) Heart rate 88 /min 88 /min [facility] ([facility]) Body mass index (BMI) [Ratio] 37.6 kg/m2 37.6 k g/m2 [facility] ([facility]) Body weight 180.12 [lb_av] 180.12 [lb_av] [facility] T ([facility]) Body height 58.0 [in_i] 58.0 [in_i] [facility] ([facility] 4'10" Diastolic blood pressure 84 mm[Hg] 84 mm[Hg] [facility] ([facility]) Systolic blood pressure 124 mm[Hg] 124 mm[Hg] [facility] Body mass index (BMI) [Ratio] 34.2 kg/m2 34.2 k g/m2 [facility] ([facility]) Body height 60 [in_i] 60 [in_i] [facility] ([facility]) 5'0" Body weight 175.00 [lb_av] 175.00 [lb_av] [facility] T ([facility]) Body temperature 98.1 [degF] 98.1 [degF] [facility] ([facility]) Oxygen saturation in Arterial blood by Pulse oximetry 96 % 96 % [facility] ([facility]) Respiratory rate 16 /min 16 /min [facility] ( [facility]) Heart rate 81 /min 81 /min [facility] ([facility]) Diastolic blood pressure 82 mm[Hg] 82 mm[Hg] [facility] ([facility]) Systolic blood pressure 126 mm[Hg] 126 mm[Hg] [facility])
[2020-09-15 22:16] VITALS: BP 139/82
== END 2020-09-15 22:18 | disposition home or self-care (01) ==
LOC: M ED 19:03
DX: L50.9 Urticaria, unspecified (principal); J44.1 Chronic obstructive pulmonary disease with (acute) exacerbation; E78.5 Hyperlipidemia, unspecified; F17.200 Nicotine dependence, unspecified, uncomplicated; Z79.899 Other long term (current) drug therapy
CPT/HCPCS: 71046; 80048; 85025; 93041; 94640; 94760; 96361; 96374; 96375; 99284; J1200; J2930

== ENCOUNTER 2021-01-29 23:28 | Emergency (ER) | payer OTHER ==
[~2021-01-29] VITALS: Ht 149.9 cm; Wt 75.7 kg
[~2021-01-29 23:28] MED LIST changes: +AZIT-12 PO; +COMBAER6 INH; +DIPH50CA PO; +PRED20TA PO
[2021-01-29 23:29] VITALS: BP 167/79
[2021-01-30 00:15] LABS: BASO # 0.1 10^3/uL (0.0-0.2); BASO % 0.6 % (0.0-1.0); EOS # 0.3 10^3/uL (0.0-0.5); EOS % 2.1 % (0.0-3.0); HEMATOCRIT 44.9 % (36.0-47.0); HEMOGLOBIN 14.8 g/dl (12.0-15.5); LYMPH % 16.8 % (24.0-44.0); MEAN CORPUSCULAR VOLUME 90.9 fl (80.0-96.0); MONO # 0.5 10^3/uL (0.0-0.8); MONO % 4.3 % (2.0-8.0); NEUTROPHILS # 9.2 10^3/uL (1.5-8.5); NEUTROPHILS % 75.5 % (36.0-66.0); PLATELET COUNT, AUTOMATED 169 10^3/uL (150-450); RED BLOOD COUNT 4.94 10^6/uL (4.00-5.40); WHITE BLOOD COUNT 12.2 10^3/uL (4.0-10.0)
[2021-01-30] MEDS ORDERED: KETOROLAC 30 MG/ML 1ML VIAL IV ONE (00:30)
[2021-01-30] MEDS ORDERED: ONDANSETRON 4MG/2ML VIAL IV ONE (00:30)
[2021-01-30 00:39] LABS: ALT/SGPT 24 U/L (12-78); BILIRUBIN,DIRECT < 0.1 MG/DL (0.0-0.2); BILIRUBIN,TOTAL 0.3 MG/DL (0.2-1.0); BLOOD UREA NITROGEN 21 MG/DL (7-18); CALCIUM LEVEL 9.9 MG/DL (8.5-10.1); CARBON DIOXIDE LEVEL 29 MEQ/L (21-32); CHLORIDE LEVEL 106 MEQ/L (98-107); CREATININE FOR GFR 0.94 MG/DL (0.55-1.30); GLOMERULAR FILTRATION RATE > 60.0 (>51); GLUCOSE, FASTING 170 MG/DL (70-100); LIPASE 64 U/L (73-393); POTASSIUM SERUM 4.4 MEQ/L (3.5-5.1); SODIUM LEVEL 141 MEQ/L (136-145)
--- NOTE | 2021-01-30 01:04 | REPVR ---
PROCEDURE INFORMATION: Exam: CT Abdomen And Pelvis Without Contrast Exam date and time: 01/30/2021 12:28 AM Age: 50 years old Clinical indication: Abdominal pain; Flank; Left; Additional info: Left flank pain TECHNIQUE: Imaging protocol: Computed tomography of the abdomen and pelvis without contrast. Radiation optimization: All CT scans at this facility use at least one of these dose optimization techniques: automated exposure control; mA and/or kV adjustment per patient size (includes targeted exams where dose is matched to clinical indication); or iterative reconstruction. COMPARISON: CT ABD PELVIS WITH CONTRAST 08/12/2017 12:46 PM FINDINGS: Liver: Normal. No mass. Gallbladder and bile ducts: Normal. No calcified stones. No ductal dilation. Pancreas: Normal. No ductal dilation. Spleen: Normal. No splenomegaly. Adrenal glands: Normal. No mass. Kidneys and ureters: Nonobstructing bilateral renal calculi. There is slight left perinephric edema and mild left hydronephrosis which extends to a proximal ureteral calculus just below the UPJ measuring 3 x 4 x 4 mm. Evidence of left renal cyst measuring 12 mm which is redemonstrated since the prior study with little change. Stomach and bowel: Unremarkable. No obstruction. No mucosal thickening. Appendix: A normal appendix is seen. Intraperitoneal space: Unremarkable. No free air. No significant fluid collection. Vasculature: There is mild calcification of the abdominal aorta. Lymph nodes: Unremarkable. No enlarged lymph nodes. Urinary bladder: Unremarkable as visualized. Reproductive: Status post hysterectomy. Bones/joints: Unremarkable. No acute fracture. Soft tissues: Unremarkable. IMPRESSION: 1. Proximal left ureteral calculus just below the left UPJ measuring 3 x 4 x 4 mm with obstructive uropathy of the left upper tract. There is resolution of the large proximal left ureteral calculus since 08/12/2017. 2. Small nonobstructing bilateral renal calculi. 3. Status post hysterectomy. Electronically signed by: Matthew Davis On 01/30/2021 01:03:42 AM
[2021-01-30] MEDS ORDERED: TAMSULOSIN 0.4 MG CAP PO ONE (01:35)
[2021-01-30] MEDS ORDERED: FLOM0.4C39 PO (01:36)
[2021-01-30] MEDS ORDERED: OXYCODONE/APAP 5MG/325MG(BULK FOR ED) 1 TABLET PO ONE (01:40)
== END 2021-01-30 02:01 | disposition home or self-care (01) ==
LOC: M ED 23:28
DX: N13.2 Hydronephrosis with renal and ureteral calculous obstruction (principal); R11.10 Vomiting, unspecified; Z90.710 Acquired absence of both cervix and uterus; I10 Essential (primary) hypertension; E78.5 Hyperlipidemia, unspecified; F17.200 Nicotine dependence, unspecified, uncomplicated; Z79.899 Other long term (current) drug therapy
CPT/HCPCS: 74176; 80048; 80076; 81001; 83690; 85025; 96374; 96375; 99283; J1885; J2405

== ENCOUNTER → 2021-06-08 | Outpatient (REF) | payer OTHER | LOC: M LAB REF 17:08 | PROVIDERS: ATTEND Physician Assistant | DX: J06.9 Acute upper respiratory infection, unspecified (principal) ==

== ENCOUNTER → 2022-10-20 | Outpatient (CLI) | payer OTHER ==
[2022-10-20 12:46] LABS: BASO # 0.1 10^3/uL (0.0-0.2); BASO % 0.8 % (0.0-1.0); EOS # 0.4 10^3/uL (0.0-0.5); EOS % 4.8 % (0.0-3.0); HEMATOCRIT 46.2 % (36.0-47.0); HEMOGLOBIN 15.5 g/dl (12.0-15.5); LYMPH % 34.5 % (24.0-44.0); MEAN CORPUSCULAR HEMOGLOBIN 30.3 pg (27.0-33.0); MEAN CORPUSCULAR HGB CONC 33.5 g/dl (32.0-36.5); MEAN CORPUSCULAR VOLUME 90.4 fl (80.0-96.0); MONO # 0.5 10^3/uL (0.0-0.8); MONO % 5.9 % (2.0-8.0); NEUTROPHILS # 4.7 10^3/uL (1.5-8.5); NEUTROPHILS % 53.8 % (36.0-66.0); PLATELET COUNT, AUTOMATED 182 10^3/uL (150-450); RED BLOOD COUNT 5.11 10^6/uL (4.00-5.40); WHITE BLOOD COUNT 8.8 10^3/uL (4.0-10.0)
[2022-10-20 13:25] LABS: ALKALINE PHOSPHATASE 85 U/L (46-116); ALT/SGPT 29 U/L (7.0-40); AST/SGOT 23 U/L (<34); BILIRUBIN,TOTAL 0.7 MG/DL (0.3-1.2); BLOOD UREA NITROGEN 15 MG/DL (9-23); CALCIUM LEVEL 9.1 MG/DL (8.5-10.1); CARBON DIOXIDE LEVEL 30 MMOL/L (20-31); CHLORIDE LEVEL 105 MMOL/L (98-107); CHOLESTEROL LEVEL 179 MG/DL (<200); CHOLESTEROL RISK RATIO 3.14 (<5); CREATININE FOR GFR 0.76 MG/DL (0.55-1.30); FOLATE 12.25 NG/ML (>5.4); FREE T4 1.12 NG/DL (0.89-1.76); GLOMERULAR FILTRATION RATE > 60.0 (>51); GLUCOSE, FASTING 96 MG/DL (60-100); LDL CHOLESTEROL 95.2 MG/DL (<100); NON-HDL-C 122 MG/DL; POTASSIUM SERUM 3.9 MMOL/L (3.5-5.1); SODIUM LEVEL 141 MMOL/L (136-145); THYROID STIMULATING HORMONE 3.281 uIU/ML (0.55-4.78); TRIGLYCERIDES LEVEL 134 MG/DL (<150); VITAMIN B12 LEVEL 339 PG/ML (211-911)
== END ==
LOC: M WUC 09:21
PROVIDERS: ATTEND Physician Assistant
DX: E55.9 Vitamin D deficiency, unspecified (principal); E78.2 Mixed hyperlipidemia; Z13.29 Encounter for screening for other suspected endocrine disorder; D51.3 Other dietary vitamin B12 deficiency anemia

== ENCOUNTER → 2023-01-23 | Outpatient (REF) | payer OTHER ==
[2023-01-23 10:56] LABS: HEMOGLOBIN A1c 5.7 % (4.0-6.0)
[2023-01-23 11:11] LABS: ALBUMIN 4.1 G/DL (3.2-5.2); ALKALINE PHOSPHATASE 80 U/L (46-116); ALT/SGPT 32 U/L (7.0-40); AST/SGOT 30 U/L (<34); BILIRUBIN,TOTAL 0.6 MG/DL (0.3-1.2); BLOOD UREA NITROGEN 20 MG/DL (9-23); CALCIUM LEVEL 9.2 MG/DL (8.5-10.1); CARBON DIOXIDE LEVEL 27 MMOL/L (20-31); CHLORIDE LEVEL 107 MMOL/L (98-107); CREATININE FOR GFR 0.75 MG/DL (0.55-1.30); GLOMERULAR FILTRATION RATE > 60.0 (>51); GLUCOSE, FASTING 99 MG/DL (60-100); POTASSIUM SERUM 4.1 MMOL/L (3.5-5.1); SODIUM LEVEL 141 MMOL/L (136-145); TOTAL PROTEIN 6.9 G/DL (5.7-8.2)
[2023-01-23 11:12] LABS: TOTAL 25(OH) VITAMIN D 57.3 NG/ML (20.0-100.0)
== END ==
LOC: M PLALAB 09:52
PROVIDERS: ATTEND Physician Assistant
DX: E55.9 Vitamin D deficiency, unspecified (principal); R73.01 Impaired fasting glucose